=== PATIENT | female | born 1935 | race Caucasian/White ===

== ENCOUNTER → 2017-01-08 | Outpatient (CLI) | payer OTHER | LOC: FIMAGING 15:04 | PROVIDERS: ATTEND Family Medicine Geriatric Medicine | DX: Z12.31 Encounter for screening mammogram for malignant neoplasm of breast (principal); Z80.3 Family history of malignant neoplasm of breast | CPT/HCPCS: G0202 ==

== ENCOUNTER 2017-05-24 12:33 | Emergency (ER) | payer OTHER ==
[2017-05-24 12:47] VITALS: RESP 18
--- NOTE | 2017-05-24 12:52 | EDPHY ---
H & P Stated Complaint: mechanical fall with walker today Time Seen by Provider: 05/24/17 12:36 HPI/ROS: CHIEF COMPLAINT: Mechanical fall, head injury, left hand injury HISTORY OF PRESENT ILLNESS: 82-year-old female, history of CVA, Alzheimer's, on daily Eliquis, arrives via ambulance, not a trauma activation, after mechanical fall at the library impacting the left side of her head and left hand. Complaining of left hand pain. Denies headache, denies vomiting. REVIEW OF SYSTEMS: A ten point review of systems was performed and is negative with the exception of the items mentioned in the HPI] PAST MEDICAL/SURGICAL HISTORY: Daily Eliquis , CVA, Alzheimer's SOCIAL HISTORY: , no alcohol use PHYSICAL EXAM 1) GENERAL: Well-developed, well-nourished, alert and oriented. Appears to be in no acute distress. Answering questions appropriately. 2) HEAD: Normocephalic, left lateral eyebrow 1 cm well-demarcated superficial laceration. Positive hematoma 3) HEENT: Pupils equal, round, reactive to light bilaterally. Negative Horners. Nasopharynx, oropharynx, clear. No deformity or angulation of nose. No septal hematoma. No rhinorrhea. No oral trauma. Ears bilaterally with normal tympanic membranes. No hemotympanum. No fluid or blood in the external auditory canal. No raccoon eyes. No Padilla sign. 2 mm puncture wound left lip not through and through. Hemostatic. Teeth are normally aligned with no gross malocclusion, TMJ bilaterally nontender, facial bones nontender including the zygomatic arch, maxilla mandible. 4) NECK: No cervical collar is on. Posterior cervical spine is nontender, no stepoff, no effusion. Full range of motion which does not elicit any midline cervical spine pain, no posterior midline tenderness, no step-off. 5) LUNGS: Clear to auscultation bilaterally, no wheezes, no rhonchi, no retractions. No obvious signs of trauma. No chest wall pain. No flaring, no grunting. Moving symmetrically. No crepitus. 6) HEART: Regular rate and rhythm, 7) ABDOMEN: No guarding, no rebound, no focal tenderness, no peritoneal signs, no signs of trauma, no ecchymosis 8) MUSCULOSKELETAL: Left upper extremity: Tender to palpation left 5th metacarpal. No deformity no angulation no shortening normal cascading of digit. Intact skin no tenting. Otherwise he wrist forearm nontender. Otherwise, Moving all extremities, no focal areas of tenderness, no obvious trauma. Bilateral hips legs nontender 9) BACK: No midline vertebral tenderness, no fluctuance, no step-off, no obvious trauma, no visual or palpable abnormality. 10) SKIN: No abrasion DIFFERENTIAL DIAGNOSIS: Not necessarily in any particular order, my differential diagnosis includes, but is not limited to, concussion, skull fracture, intraparenchymal contusion, subarachnoid, subdural and epidural hematoma. The patient understands that this diagnosis is provisional and can never be 100% accurate. 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 - Social History Smoking Status: Never smoked Constitutional: Initial Vital Signs Temperature (C) 36.7 C 05/24/17 12:46 Heart Rate 86 05/24/17 12:46 Respiratory Rate 18 05/24/17 12:46 Blood Pressure 136/96 H 05/24/17 12:46 O2 Sat (%) 100 05/24/17 12:46 O2 Delivery Mode Room Air Allergies/Adverse Reactions: No Known Allergies Allergy (Unverified 01/28/16 12:01) Home Medications: Medication Instructions Recorded LORazepam [Ativan (*)] 0.5 mg PO DAILY PRN 02/05/16 Acetaminophen [Tylenol 325mg (*)] 325 mg PO Q6 PRN #20 tab 02/10/16 Calcium Carbonate [Tums 500MG (*)] 1,000 mg PO BID PRN #30 tab.chew 02/10/16 Cholecalciferol Vit D3 [Vitamin D3 2,000 units PO DAILY #30 cap 02/10/16 2000 units] Escitalopram Oxalate [Lexapro] 5 mg PO DAILY #30 tablet 06/17/16 Metoprolol Tartrate [Lopressor 25 25 mg PO BID #60 tab 02/10/16 mg (*)] traMADol [Ultram 50 mg (*)] 50 mg PO Q6 PRN #30 tab 02/10/16 Eliquis 05/24/17 Medical Decision Making - Diagnostics Imaging Results: Imaging Impressions Cervical Spine CT 05/24/17 12:47 Impression: 1. No definite fracture. 2. Multilevel moderate to severe degenerative disk disease, worse at C5-C6 and C6-C7 and variable bilateral facet arthropathy with degenerative anterolisthesis at C3-C4 and C7-T1 resulting in moderate to severe central canal stenosis at C5-C6 and C6-C7, worse at C6-C7, and variable bilateral neural foraminal stenosis, also worse at C5-C6 and C6-C7. 3.If there is persistent pain or neurological deficit, recommend MR cervical spine and consider flexion and extension views, if clinically indicated. Findings and recommendations discussed with Emergency Department physician, Nannette Wu at 13:55 hour, 05/24/2017. Final report concurs with initial preliminary interpretation. Hand X-Ray 05/24/17 12:47 Impression: 1. Displaced fracture distal shaft left fifth metacarpal with some overlapping of the edges. 2. Mild underlying osteoarthritis. Head CT 05/24/17 12:47 Impression: 1. Moderate atrophy. 2. Old left parietal infarct. No acute hemorrhage, hydrocephalus, or mass effect. 3. Cerebrovascular atherosclerosis. 4. No definite acute infarct. 5. Moderate microvascular ischemic gliosis. 6. No epidural or subdural hematoma. 7. Possible right middle ear otitis media with chronic right mastoiditis. Findings and recommendations discussed with Emergency Department physician, Nannette Wu at 13:55 hour, 05/24/2017. Final report concurs with initial preliminary interpretation. Images reviewed by myself Imaging: Discussed imaging studies w/ staff accountant Radiologist Procedures: Procedure: Splint an ulnar gutter Ortho Glass splint was applied by ER electronic service technician. After application of the splint I returned and re-examined the patient. The splint was adequately immobilizing the joint and distal to the splint the patient's circulation and sensation were intact. Patient shows no signs of compartment syndrome. Was given orthopedic precautions. Procedure: Laceration repair with tissue adhesive Verbal consent was obtained from the patient. The 1 cm laceration on the left lateral eyebrow. The wound was scrubbed and explored to its base with a gloved finger. No foreign body seen, no foreign bodies palpated. There were no deep structures involved. The wound was repaired with tissue adhesive. The procedure was performed by myself. Patient has been informed that scarring will occur, although every effort has been made to minimize this. ED Course/Re-evaluation: 12:50 p.m.: Head CT ordered in this patient for trauma for the following indication: greater than 65 years old, anticoagulated. 2:50 p.m.: Patient re-evaluated, laceration to the left eyebrow closed with tissue adhesive. Patient's answering questions appropriately, has care providers and at bedside . Patient would like to be discharged. The patient lives with family members. They feel comfortable being discharged. Usual customary head injury precautions including delayed intracranial hemorrhage discussed. Importance of close follow-up discussed. They feel comfortable being discharged. Given orthopedic precautions and instructions and follow-up information. Departure - Departure Disposition: Home, Routine, Self-Care Clinical Impression: Boxers fracture Qualifiers: Encounter type: initial encounter Fracture type: closed Qualified Code(s): S62.339A - Displaced fracture of neck of unspecified metacarpal bone, initial encounter for closed fracture Head injury Qualifiers: Encounter type: initial encounter Qualified Code(s): S09.90XA - Unspecified injury of head, initial encounter Laceration of forehead Qualifiers: Encounter type: initial encounter Qualified Code(s): S01.81XA - Laceration without foreign body of other part of head, initial encounter Condition: Good Instructions: Hand Fracture (ED), Boxer Fracture (ED), Head Injury (ED), Laceration (ED), Skin Adhesive Care (ED) Additional Instructions: ALTHOUGH THERE IS NO EVIDENCE OF SERIOUS HEAD INJURY AT THIS TIME, DELAYED SIGNS CAN APPEAR 24 TO 48 HOURS AFTER INJURY. WE RECOMMEND THAT YOU DESIGNATE A FRIEND OR FAMILY MEMBER TO OBSERVE YOU OVER THE NEXT FEW DAYS TO ENSURE THAT YOUR CONDITION IS PROGRESSING NORMALLY. PLEASE RETURN TO THE EMERGENCY DEPARTMENT (ED) IMMEDIATELY IF YOU HAVE INCREASED HEADACHE, PERSISTENT HEADACHE , VOMITING, WEAKNESS, CONFUSION OR VISUAL PROBLEMS. WE RECOMMEND THAT YOU DO NOT RESUME CONTACT SPORTS OR ACTIVITIES THAT TAKE COORDINATION OR BALANCE SUCH SKIING OR RIDING A BICYCLE UNTIL CLEARED TO DO SO BY YOUR DOCTOR OR BY A NEUROLOGIST. Return to the ER immediately if you experience discoloration, have worsening pain, numbness, tingling, or any other symptoms that concern you. If you received x-rays in the emergency department today, be advised, that ligamentous , tendon, muscular, and other non-bony injury cannot be fully ruled out. Try to keep your affected extremity elevated above the level of your chest, and keep cold packs on the affected area, for the next 48 hours. Referrals: Adin Vogt MD [Medical Doctor] - 2-3 days without fail (Dr. Adin Vogt is orthopedic surgeon)
[2017-05-24 13:44] VITALS: BP 122/87
[2017-05-24] MEDS ORDERED: HYDROGEN PEROXIDE 236 ML BOTTLE TP ONE (13:50)
[2017-05-24] MEDS ORDERED: SKIN ADHESIVE (DERMABOND) 1 EACH TP ONE (14:44)
[2017-05-24 15:05] VITALS: PULSE 86; TEMP 98.4; O2SAT 95
== END 2017-05-24 15:05 | disposition home or self-care (01) ==
LOC: EDUNIT#
PROC: 0HQ1XZZ Repair Face Skin, External Approach (ICD-10-PCS; principal; 2017-05-24)
DX: S01.112A Laceration without foreign body of left eyelid and periocular area, initial encounter (principal); S62.337A Displaced fracture of neck of fifth metacarpal bone, left hand, initial encounter for closed fracture; I50.9 Heart failure, unspecified; I11.0 Hypertensive heart disease with heart failure; Z86.73 Personal history of transient ischemic attack (TIA), and cerebral infarction without residual deficits; Z79.01 Long term (current) use of anticoagulants; W18.30XA Fall on same level, unspecified, initial encounter; Y92.241 Library as the place of occurrence of the external cause

== ENCOUNTER → 2018-02-03 | Outpatient (CLI) | payer OTHER | LOC: FIMAGING 09:21 | PROVIDERS: ATTEND Family Medicine Geriatric Medicine | DX: Z12.31 Encounter for screening mammogram for malignant neoplasm of breast (principal); Z80.3 Family history of malignant neoplasm of breast ==

== ENCOUNTER → 2018-02-19 | Outpatient (CLI) | payer OTHER | LOC: FIMAGING 09:10 | DX: R92.8 Other abnormal and inconclusive findings on diagnostic imaging of breast (principal) ==

== ENCOUNTER → 2018-05-06 | Outpatient (CLI) | payer OTHER | LOC: FIMAGING 10:03 | PROVIDERS: ATTEND Physician Assistant Surgical | DX: S22.000A Wedge compression fracture of unspecified thoracic vertebra, initial encounter for closed fracture (principal) ==

== ENCOUNTER 2018-06-03 09:31 | Inpatient (IN) | payer OTHER ==
--- NOTE | 2018-06-03 09:47 | EDPHY ---
H & P Time Seen by Provider: 06/03/18 09:41 HPI/ROS: CHIEF COMPLAINT: Worsening shortness of breath and fatigue HISTORY OF PRESENT ILLNESS: History from the patient's daughter as she has trouble with words after previous stroke. She has been sick for the last 2 weeks with some diarrhea better with Imodium. She had an episode of nausea and vomiting yesterday. Over the past 2 days increasing shortness of breath with wheezing starting last night. Worse today with severe lethargy and fatigue and low blood pressure of 96/70 last night with her metoprolol held. Today symptoms are moderate to severe, worse with exertion. Not associated with fevers or chills. Further history and review of systems is limited by the patient's difficulty with speech which is baseline for her. She intermittently will sit she has chest pain or urinary symptoms and then when questioned differently she will deny. PAST MEDICAL HISTORY: Includes atrial fibrillation on Eliquis, stroke with residual speech difficulty, pulmonary embolism call a Alzheimer's, hypertension Social history: Here with her daughter who is her primary caregiver General Appearance: Alert and pleasant and cooperative with the exam Eyes: No scleral icterus. Extraocular motion intact. ENT, Mouth: Dry mucous membranes. Respiratory: Normal respiratory effort, breath sounds equal, lungs are clear to auscultation. Cardiovascular: Irregular and tachycardic. Gastrointestinal: Abdomen is soft and non tender. Neurological: Alert, face symmetric, normal motor and sensory in extremities. Difficulty with speech but can answer questions. Skin: Warm and dry, no rashes. Musculoskeletal: No peripheral edema. Psychiatric: Not agitated. Emergency Department course/MDM: Plan chest x-ray, EKG and electrolytes, urinalysis. Pulmonary embolism would be unlikely as she is on Eliquis. 1140: Pyuria noted, IV fluids and ceftriaxone, 2nd lactate ordered. Admission to hospitalist. 2nd troponin decreased from the 1st 1, she did not have recurrent hypotension. Does not have evidence of septic shock. Treated for severe sepsis with antibiotics and 30 mL/kilos IV fluids. Smoking Status: Never smoked Constitutional: Initial Vital Signs Temperature (C) 37 C 06/03/18 09:44 Heart Rate 112 H 06/03/18 09:44 Respiratory Rate 20 06/03/18 09:44 Blood Pressure 96/59 L 06/03/18 09:44 O2 Sat (%) 97 06/03/18 09:44 O2 Delivery Mode Room Air Allergies/Adverse Reactions: No Known Allergies Allergy (Unverified 06/03/18 09:40) Home Medications: Medication Instructions Recorded Cholecalciferol Vit D3 [Vitamin D3 2,000 units PO DAILY #30 cap 02/10/16 2000 units] Apixaban [Eliquis] 2.5 mg PO BID 03/26/18 Escitalopram Oxalate [Lexapro] 20 mg PO HS 03/26/18 Loperamide HCl [Imodium 2 mg (*)] 2 mg PO HS 03/26/18 Metoprolol Tartrate [Lopressor 25 25 mg PO BID 03/26/18 mg (*)] Acetaminophen [Tylenol ES 500 mg 500 mg PO TID 06/03/18 (*)] Furosemide [Lasix 20 MG (*)] 20 mg PO DAILY 06/03/18 LORazepam [Ativan (*)] 0.5 mg PO DAILY PRN 06/03/18 Lisinopril [Zestril 5 mg (*)] 5 mg PO DAILY@12 06/03/18 Sertraline HCl [Zoloft 50mg (*)] 75 mg PO DAILY 06/03/18 Medical Decision Making - Diagnostics EKG Interpretation: 12-lead EKG interpreted by me; official reading is in computer system. My interpretation is AFib with PVC and nonspecific lateral repolarization abnormality. Imaging Results: Imaging Impressions Chest X-Ray 06/03/18 10:32 Impression: 1. No pneumonia or acute intrathoracic process in this patient with COPD/ emphysema. 2. Atherosclerotic disease. 3. Chronic hiatal hernia. Imaging: I viewed and interpreted images myself Differential Diagnosis: Differential diagnosis considered for shortness of breath including but not limited to pulmonary infectious process, COPD, asthma, pulmonary embolus and congestive heart failure. Consult/Admit Bed Type: [place] [id number] Critical Care Time: Critical care time spent by me, Dr. Gaffney, exclusively with the care of this patient was 30 minutes, exclusive of PA or MILITARY LOGISTICS SPECIALIST time and exclusive of separate procedures. The organ system at risk was infectious and Cardiovascular sepsis and initial hypotension and I ordered IV fluids, IV antibiotics, multiple diagnostics to stabilize the patient and prevent worsening of the patient's condition. - Data Points Laboratory Results: Laboratory Results 06/03/18 10:00 06/03/18 10:00 06/03/18 06/03/18 06/03/18 10:30 10:26 10:25 WBC RBC Hgb Hct MCV MCH MCHC RDW Plt Count MPV Neut % (Auto) Lymph % (Auto) Gilmer % (Auto) Eos % (Auto) Baso % (Auto) Nucleat RBC Rel Count Absolute Neuts (auto) Absolute Lymphs (auto) Absolute Monos (auto) Absolute Eos (auto) Absolute Basos (auto) Absolute Nucleated RBC Immature Gran % Immature Gran # PT INR APTT VBG Lactic Acid 2.3 mmol/L H mmol/L (0.7-2.1) Sodium Potassium Chloride Carbon Dioxide Anion Gap BUN Creatinine Estimated GFR Glucose Calcium Phosphorus Total Bilirubin POC Troponin I 0.06 ng/mL ng/mL (0.00-0.08) NT-Pro-B Natriuret Pep Urine Color YELLOW Urine Appearance CLEAR Urine pH 5.0 (5.0-7.5) Ur Specific Everly 1.016 (1.002-1.030) Urine Protein NEGATIVE (NEGATIVE) Urine Ketones NEGATIVE (NEGATIVE) Urine Blood NEGATIVE (NEGATIVE) Urine Nitrate POSITIVE H (NEGATIVE) Urine Bilirubin NEGATIVE (NEGATIVE) Urine Urobilinogen NEGATIVE EU EU (0.2-1.0) Ur Leukocyte Esterase TRACE H (NEGATIVE) Urine RBC 1-3 /hpf /hpf (0-3) Urine WBC 10-15 /hpf H /hpf (0-3) Ur Epithelial Cells NONE SEEN /lpf /lpf (NONE-1+) Urine Bacteria 1+ /hpf H /hpf (NONE SEEN) Urine Glucose NEGATIVE (NEGATIVE) 06/03/18 06/03/18 06/03/18 10:00 10:00 10:00 WBC 9.49 10^3/uL 10^3/uL (3.80-9.50) RBC 3.92 10^6/uL L 10^6/uL (4.18-5.33) Hgb 12.6 g/dL g/dL (12.6-16.3) Hct 38.7 % % (38.0-47.0) MCV 98.7 fL fL (81.5-99.8) MCH 32.1 pg pg (27.9-34.1) MCHC 32.6 g/dL g/dL (32.4-36.7) RDW 13.3 % % (11.5-15.2) Plt Count 164 10^3/uL 10^3/uL (150-400) MPV 12.0 fL H fL (8.7-11.7) Neut % (Auto) 71.7 % % (39.3-74.2) Lymph % (Auto) 14.6 % L % (15.0-45.0) Gilmer % (Auto) 11.5 % % (4.5-13.0) Eos % (Auto) 1.2 % % (0.6-7.6) Baso % (Auto) 0.4 % % (0.3-1.7) Nucleat RBC Rel Count 0.0 % % (0.0-0.2) Absolute Neuts (auto) 6.80 10^3/uL H 10^3/uL (1.70-6.50) Absolute Lymphs (auto) 1.39 10^3/uL 10^3/uL (1.00-3.00) Absolute Monos (auto) 1.09 10^3/uL H 10^3/uL (0.30-0.80) Absolute Eos (auto) 0.11 10^3/uL 10^3/uL (0.03-0.40) Absolute Basos (auto) 0.04 10^3/uL 10^3/uL (0.02-0.10) Absolute Nucleated RBC 0.00 10^3/uL 10^3/uL (0-0.01) Immature Gran % 0.6 % % (0.0-1.1) Immature Gran # 0.06 10^3/uL 10^3/uL (0.00-0.10) PT 18.6 SEC H SEC (12.0-15.0) INR 1.54 H (0.83-1.16) APTT 34.3 SEC SEC (23.0-38.0) VBG Lactic Acid Sodium 141 mEq/L mEq/L (135-145) Potassium 3.6 mEq/L mEq/L (3.3-5.0) Chloride 110 mEq/L mEq/L (97-110) Carbon Dioxide 17 mEq/l L mEq/l (22-31) Anion Gap 14 mEq/L mEq/L (8-16) BUN 26 mg/dL H mg/dL (7-23) Creatinine 1.1 mg/dL H mg/dL (0.6-1.0) Estimated GFR 48 Glucose 103 mg/dL H mg/dL (70-100) Calcium 11.2 mg/dL H mg/dL (8.5-10.4) Phosphorus 2.9 mg/dL mg/dL (2.5-4.5) Total Bilirubin 0.6 mg/dL mg/dL (0.1-1.4) POC Troponin I NT-Pro-B Natriuret Pep 2010 pg/mL H pg/mL (0-450) Urine Color Urine Appearance Urine pH Ur Specific Everly Urine Protein Urine Ketones Urine Blood Urine Nitrate Urine Bilirubin Urine Urobilinogen Ur Leukocyte Esterase Urine RBC Urine WBC Ur Epithelial Cells Urine Bacteria Urine Glucose Microbiology Results: MICROBIOLOGY 06/03/18 11:15 Nasal, Sinus - Swab Respiratory Panel (PCR) - Final No Organism Detected Medications Given: Sodium Chloride (Ns) 1,000 mls @ 100 mls/hr IV CONT NICOLETTE Stop: 11/30/18 13:44 Last Admin: 06/03/18 14:19 Dose: 1,000 mls Discontinued Medications Ceftriaxone Sodium/Dextrose (Rocephin 1 Gm (Premix)) 50 mls @ 100 mls/hr IV EDNOW ONE PRN Reason: Protocol Stop: 06/03/18 11:57 Last Admin: 06/03/18 11:41 Dose: 50 mls Sodium Chloride (Ns) 2,100 mls @ 4,200 mls/hr 30 ml/kg infuse over 30 min ( 2100 ml) IV EDNOW ONE PRN Reason: Protocol Stop: 06/03/18 11:57 Last Admin: 06/03/18 11:40 Dose: 2,100 mls Point of Care Test Results: Chemistry 06/03/18 10:26 POC Troponin I 0.06 ng/mL ng/mL (0.00-0.08) Departure - Departure Disposition: [facility] Inpatient Acute Clinical Impression: UTI (urinary tract infection) Qualifiers: Urinary tract infection type: acute pyelonephritis Qualified Code(s): N10 - Acute pyelonephritis Sepsis Qualifiers: Sepsis type: sepsis due to unspecified organism Qualified Code(s): A41.9 - Sepsis, unspecified organism Condition: Fair
[2018-06-03 10:35] LABS: PLATELET COUNT 164 10^3/uL (150-400)
--- NOTE | 2018-06-03 10:38 | CPEKG ---
Test Reason : OPEN Blood Pressure : / mmHG Vent. Rate : 110 BPM Atrial Rate : 111 BPM P-R Int : 000 ms QRS Dur : 095 ms QT Int : 327 ms P-R-T Axes : 134 -26 182 degrees QTc Int : 443 ms atrial fibrillation Ventricular premature complex Borderline left axis deviation Repol abnrm suggests ischemia, anterolateral Confirmed by Lino Gaffney ([id number]) on 06/03/2018 10:38:00 AM Referred By: Confirmed By:Lino Gaffney
[2018-06-03 10:46] LABS: INR 1.54 (0.83-1.16); PROTIME(PATIENT) 18.6 SEC (12.0-15.0)
[2018-06-03] MEDS ORDERED: NS 2,100 ML IV ONE (11:28)
[2018-06-03] MEDS ORDERED: ACETAMINOPHEN 325 MG TAB PO PRN (12:17)
[2018-06-03] MEDS ORDERED: METOCLOPRAMIDE 10 MG TAB PO PRN (13:34)
[2018-06-03] MEDS ORDERED: oxyCODONE IR 5 MG TAB PO PRN (13:34)
[2018-06-03] MEDS ORDERED: HYDROmorphONE/DILAUDID 1 MG/ML INJ IVP PRN (13:34)
[2018-06-03] MEDS ORDERED: NS 1,000 ML IV SCH (13:45)
--- NOTE | 2018-06-03 14:03 | PDGENHP ---
History and Physical - Chief Complaint Shortness of breath and fatigue - History of Present Illness 83 y/o female with a history of atrial fibrillation, stroke with residual asphasia, PE, HTN, CHF, and depression presents to the ED with her daughter because of shortness of breath, wheezing, and activity intolerance. Pt appears to be in no distress, is calm and cooperative. Her daughter is the primary caregiver and answers majority of the questions as the pt has asphasia from her stroke that was in 2016. Pt's acute condition started 2-3 days ago but the onset of wheezing is new and that is what brought the pt in today. Daughter reports checking the pt's blood pressure, HR and oxygen and was worried because her "blood pressure was low, her heart rate was high plus she was wheezing just trying to move from room to room." Oxygen levels never dropped below 92%. Denies dizziness, lightheadedness, chest pains, fevers, chills. +emesis x 1 episode yesterday. She started Sertraline 5 weeks ago, began to have diarrhea 3 weeks ago and has been taking Imodium. Today was the first day the pt had a small, formed bowel movement. She has not had an appetite for the last 3 weeks. She drinks water and tea. She reports one episode of a burning sensation urinating within the last couple of days. Denies blood in stool or urine. She is being admitted for antibiotics, hydration, and further diagnostic work- up. History Information - Allergies/Home Medication List Allergies/Adverse Reactions: No Known Allergies Allergy (Unverified 06/03/18 09:40) Home Medications: Apixaban [Eliquis] 2.5 mg PO BID 03/26/18 [Last Taken 06/02/18 21:00] Escitalopram Oxalate [Lexapro] 20 mg PO HS 03/26/18 [Last Taken 06/02/18] Loperamide HCl [Imodium 2 mg (*)] 2 mg PO HS 03/26/18 [Last Taken 03/25/18] Metoprolol Tartrate [Lopressor 25 mg (*)] 25 mg PO BID 03/26/18 [Last Taken 04/12 09:00] Acetaminophen [Tylenol ES 500 mg (*)] 500 mg PO TID 06/03/18 [Last Taken ] Furosemide [Lasix 20 MG (*)] 20 mg PO DAILY 06/03/18 [Last Taken 06/02/18] LORazepam [Ativan (*)] 0.5 mg PO DAILY PRN 06/03/18 [Last Taken 06/01/18] Lisinopril [Zestril 5 mg (*)] 5 mg PO DAILY@12 06/03/18 [Last Taken 06/02/18] Sertraline HCl [Zoloft 50mg (*)] 75 mg PO DAILY 06/03/18 [Last Taken 06/02/18] I have personally reviewed and updated: family history, medical history, social history, surgical history - Past Medical History atrial fibrillation, arthritis, cancer, CHF, CVA, dementia (Per daughter, not diagnosed but thinks she has vascular dementia), hearing deficit, hypertension, pulmonary embolism, recent fracture Additional medical history: Right breast cancer - Surgical History Reports: cancer surgery Additional surgical history: Right breast lumpectomy April 2018 - Family History Positive for: cancer (Breast cancer) - Social History Smoking Status: Never smoked Alcohol Use: Occasionally (One kristal every ) Drug Use: None Review of Systems Review of Systems: Lab Data and Imaging reviewed. ROS: 10pt was reviewed & negative except for what was stated in HPI & below Constitutional: Reports: recent illness, weakness EENMT: Reports: other (Black teeth) Cardiac: Reports: irregular heart rate Respiratory: Reports: shortness of breath, wheezing (With exertion) Gastrointestinal: Reports: diarrhea, nausea Genitourinary: Reports: burning, incontinence Muscolosketal: Reports: no symptoms Skin: Reports: no symptoms Neurological: Reports: depressed, pre-existing deficit (Stroke), weakness Hematologic/Lymphatic: Reports: no symptoms Immunologic/Allergy: Reports: no symptoms Physical Exam Physical Exam: Temp Pulse Resp BP Pulse Ox 36 C 100 16 100/66 99 06/03/18 13:46 06/03/18 13:46 06/03/18 13:46 06/03/18 13:46 06/03/18 13:46 Constitutional: no apparent distress Eyes: PERRL, anicteric sclera, EOMI Ears, Nose, Mouth, Throat: poor dentition, hard of hearing Cardiovascular: irregularly irregular, tachycardia Peripheral Pulses: 1+: dorsalis-pedis (R), dorsalis-pedis (L) Respiratory: reduced air movement Gastrointestinal: normoactive bowel sounds, tenderness (LUQ, LLQ) Genitourinary: no bladder fullness, no bladder tenderness Skin: warm, normal color, no rashes or abrasions, no fluctuance, no induration, No mottled Musculoskeletal: full muscle strength, no muscle tenderness, normal joint ROM, no joint effusions Neurologic: weakness, numbness, CN II-XII Intact Psychiatric: interacting appropriately, not anxious, not encephalopathic, thought process linear Lymph, Heme, Immunologic: no cervical LAD, no supraclavicular LAD Lab Data & Imaging Review 06/03/18 10:00 06/03/18 10:00 WBC 9.49 10^3/uL (3.80-9.50) 06/03/18 10:00 RBC 3.92 10^6/uL (4.18-5.33) L 06/03/18 10:00 Hgb 12.6 g/dL (12.6-16.3) 06/03/18 10:00 Hct 38.7 % (38.0-47.0) 06/03/18 10:00 MCV 98.7 fL (81.5-99.8) 06/03/18 10:00 MCH 32.1 pg (27.9-34.1) 06/03/18 10:00 MCHC 32.6 g/dL (32.4-36.7) 06/03/18 10:00 RDW 13.3 % (11.5-15.2) 06/03/18 10:00 Plt Count 164 10^3/uL (150-400) 06/03/18 10:00 MPV 12.0 fL (8.7-11.7) H 06/03/18 10:00 Neut % (Auto) 71.7 % (39.3-74.2) 06/03/18 10:00 Lymph % (Auto) 14.6 % (15.0-45.0) L 06/03/18 10:00 [place] % (Auto) 11.5 % (4.5-13.0) 06/03/18 10:00 Eos % (Auto) 1.2 % (0.6-7.6) 06/03/18 10:00 Baso % (Auto) 0.4 % (0.3-1.7) 06/03/18 10:00 Nucleat RBC Rel Count 0.0 % (0.0-0.2) 06/03/18 10:00 Absolute Neuts (auto) 6.80 10^3/uL (1.70-6.50) H 06/03/18 10:00 Absolute Lymphs (auto) 1.39 10^3/uL (1.00-3.00) 06/03/18 10:00 Absolute Monos (auto) 1.09 10^3/uL (0.30-0.80) H 06/03/18 10:00 Absolute Eos (auto) 0.11 10^3/uL (0.03-0.40) 06/03/18 10:00 Absolute Basos (auto) 0.04 10^3/uL (0.02-0.10) 06/03/18 10:00 Absolute Nucleated RBC 0.00 10^3/uL (0-0.01) 06/03/18 10:00 Immature Gran % 0.6 % (0.0-1.1) 06/03/18 10:00 Immature Gran # 0.06 10^3/uL (0.00-0.10) 06/03/18 10:00 PT 18.6 SEC (12.0-15.0) H 06/03/18 10:00 INR 1.54 (0.83-1.16) H 06/03/18 10:00 APTT 34.3 SEC (23.0-38.0) 06/03/18 10:00 VBG Lactic Acid 1.4 mmol/L (0.7-2.1) 06/03/18 13:15 Sodium 141 mEq/L (135-145) 06/03/18 10:00 Potassium 3.6 mEq/L (3.3-5.0) 06/03/18 10:00 Chloride 110 mEq/L (97-110) 06/03/18 10:00 Carbon Dioxide 17 mEq/l (22-31) L 06/03/18 10:00 Anion Gap 14 mEq/L (8-16) 06/03/18 10:00 BUN 26 mg/dL (7-23) H 06/03/18 10:00 Creatinine 1.1 mg/dL (0.6-1.0) H 06/03/18 10:00 Estimated GFR 48 06/03/18 10:00 Glucose 103 mg/dL (70-100) H 06/03/18 10:00 Calcium 11.2 mg/dL (8.5-10.4) H 06/03/18 10:00 Phosphorus 2.9 mg/dL (2.5-4.5) 06/03/18 10:00 Total Bilirubin 0.6 mg/dL (0.1-1.4) 06/03/18 10:00 POC Troponin I 0.06 ng/mL (0.00-0.08) 06/03/18 10:26 NT-Pro-B Natriuret Pep 2010 pg/mL (0-450) H 06/03/18 10:00 Urine Color YELLOW 06/03/18 10:30 Urine Appearance CLEAR 06/03/18 10:30 Urine pH 5.0 (5.0-7.5) 06/03/18 10:30 Ur Specific [place]t 1.016 (1.002-1.030) 06/03/18 10:30 Urine Protein NEGATIVE (NEGATIVE) 06/03/18 10:30 Urine Ketones NEGATIVE (NEGATIVE) 06/03/18 10:30 Urine Blood NEGATIVE (NEGATIVE) 06/03/18 10:30 Urine Nitrate POSITIVE (NEGATIVE) H 06/03/18 10:30 Urine Bilirubin NEGATIVE (NEGATIVE) 06/03/18 10:30 Urine Urobilinogen NEGATIVE EU (0.2-1.0) 06/03/18 10:30 Ur Leukocyte Esterase TRACE (NEGATIVE) H 06/03/18 10:30 Urine RBC 1-3 /hpf (0-3) 06/03/18 10:30 Urine WBC 10-15 /hpf (0-3) H 06/03/18 10:30 Ur Epithelial Cells NONE SEEN /lpf (NONE-1+) 06/03/18 10:30 Urine Bacteria 1+ /hpf (NONE SEEN) H 06/03/18 10:30 Urine Glucose NEGATIVE (NEGATIVE) 06/03/18 10:30 Assessment & Plan Assessment: 83 y/o female presenting with acute SOB with wheezing upon exertion, loss of appetite, and fatigue. Plan: #Dyspnea -Echo ordered -Respiratory panel negative -Continue monitoring oxygen sats #CHF -Echo ordered -Cycle trops -Continue Metoprolol and Furosemide #A-Fib -Continue Eliquis #PE -Continue Eliquis -While in bed or chair, SCDs #UTI -Ceftriaxone 1gm Q24 -Lactate levels improving -Urine cultures pending #Hypovolemia -CBC and BMP lab draws for tomorrow -Blood cultures pending -IVF #Diarrhea -GI pathogen pending -IVF #HTN -Continue Lisinopril and Metoprolol #Depression -Continue Sertraline and Ativan Code: Full VTE ppx: Олег Iqbal Dispo: Admit to inpatient
[2018-06-03] MEDS ORDERED: LORazepam 0.5 MG TAB PO PRN (15:55)
--- NOTE | 2018-06-03 16:03 | PDMN ---
Medical Necessity Medical necessity: Pt meets inpt criteria per MD order and MCG M-190, Heart Failure, A-2 days. 83 y/o presenting w/acute SOB w/wheezing, loss of appetite, fatigue, and hypotension admitted w/CHF, UTI, hypovolemia, and diarrhea. BNP 2010, BUN 26, creat 1.1, VBG lactic acid 2.3, blood and urine cultures pending. IV ABX's, IVF, ECHO pending, Comorbidities include hx afib, stroke w/residual aphasia, PE, HTN, CHF, adv age. Anticipate>2MN for ongoing med nec eval/ treatment.
--- NOTE | 2018-06-03 17:44 | HOSPPROG ---
Hospitalist Progress Note Assessment/Plan: Patient seen and examined, as well as discussed with Susan Conway NP. I have reviewed her note and concur with her findings. When I see her, she is much improved and interacting appropriately with a much improved BP. Her underlying presentation is most consistent with hypovolemia from diarrhea, as well as poor PO intake from UTI. She has markedly improved with IVF. We will complete a cardiac workup including echo and troponins given her significant CHF. We will assure she does not have an infective cause. We will continue her chronic treatment for a-fib, her CVA and her PE. If she continues to improve she may be discharged tomorrow. Objective: Vital Signs Temp Pulse Resp BP Pulse Ox 36.5 C 92 20 101/68 97 06/03/18 16:00 06/03/18 16:00 06/03/18 16:00 06/03/18 16:00 06/03/18 16:00 06/02/18 06/03/18 06/04/18 05:59 05:59 05:59 Intake Total 2660 Balance 2660 PT 18.6 SEC (12.0-15.0) H 06/03/18 10:00 INR 1.54 (0.83-1.16) H 06/03/18 10:00 ICD10 Worksheet Patient Problems: Problems Problem Status Onset Atrial fibrillation Acute Pancreatitis Acute Elevated troponin Acute New onset atrial fibrillation Acute CVA (cerebral vascular accident) Acute Back pain Acute UTI (urinary tract infection) Acute Sepsis Acute
--- NOTE | 2018-06-03 18:26 | ECHO ---
[email or web address] [address] Main: [phone] Fax: [email or web address] Echocardiogram Name: NICHOLE MYERS MR#: [id number] Study Date: 06/03/2018 Study Time: 03:22 PM Date of : 1935 Age: 83 year(s) Height: 157.5 cm (62 in.) Weight: 70.76 kg (156 lb.) BSA: 1.72 m2 Gender: Female Examination: Indication: Sepsis, Shortness of breath, Fatique, UTI Image Quality: Contrast: Requested by: Elda Conway BP: 128 mmHg/113 mmHg Heart Rate: Rhythm: Indication: Sepsis, Shortness of breath, Fatique, UTI Procedure Staff Frame Changer: Dwain Wiley RDCS Reading Physician: Cody Shore MD Requesting Provider: Conclusions: Normal size left ventricle. Low normal left ventricular systolic function. Normal RV function. The left atrium is severely dilated. The right atrium is severely dilated. Severe tricuspid regurgitation is present. Right ventricular systolic pressure measures 57mmHg. There is a pulmonary valve vegetation. There is mobile echodensity on the pulmonic valve consistent with a vegetation and endocarditis. Measurements: Chambers Valvular Assessment AV/MV Valvular Assessment TV/PV Normal Normal Normal Name Value Range Name Value Range Name Value Range Ao Ruth (MM): 3.4 cm (2.2 cm-3.7 AV Vmax: 1.26 m/s (1 m/s-1.7 TR Vmax: 3.60 mm/s ( - ) cm) m/s) TR PGmax: 52 mmHg ( - ) IVSd (2D): 0.9 cm (0.6 cm-1.1 AV maxP mmHg ( - ) syst. PAP: 57 mmHg ( - ) cm) LVOT Vmax: 0.70 m/s (0.7 m/s-1.1 LVDd (2D): 3.7 cm (3.9 cm-5.3 m/s) cm) MV E Vmax: 0.91 m/s ( - ) LVDs (2D): 2.7 cm (2.1 cm-4 cm) LVPWd (2D): 0.9 cm ( - ) LVEF (2D): 55 (>=54 %) Continued Measurements: Chambers Valvular Assessment AV/MV Valvular Assessment TV/PV Name Value Name Value Name Value Patient: NICHOLE MYERS Study Date: 06/03/2018 Page 1 of 2 03:22 PM LADs Lon.9 cm MV E' Septal: 0.07 m/s CVP (est.): 5 mmHg LA Area: 34.3 cm2 MV E/E' Septal: 13.50 LA Volume: 120 ml MV E/E' Lateral: 5.50 LA Volume Index: 69.8 ml/m2 Findings: Left Ventricle: Normal size left ventricle. No LV hypertrophy. Low normal left ventricular systolic function. EF is 55 %. Diastolic dysfunction is present. . Right Ventricle: Normal size right ventricle. Normal RV function. Left Atrium: The left atrium is severely dilated. Right Atrium: The right atrium is severely dilated. Mitral Valve: The mitral valve is normal in appearance. Trivial to mild mitral regurgitation. There is no mitral valve vegetation. Aortic Valve: The aortic valve is tri-leaflet. There is no significant aortic valve regurgitation. There is no aortic valve vegetation. Tricuspid Valve: The tricuspid valve appears normal. Severe tricuspid regurgitation is present. The pulmonary artery pressure is moderately increased. Right ventricular systolic pressure measures 57mmHg. No tricuspid valve vegetation. Pulmonic Valve: Trivial pulmonic valve regurgitation. There is a pulmonary valve vegetation. Aorta: The aorta is normal. Pericardium: No pericardial effusion. Exam Comments: (No Signature Object) Patient: NICHOLE MYERS Study Date: 06/03/2018 Page 2 of 2 03:22 PM [id number]
[2018-06-03] MEDS ORDERED: VANCOMYCIN HCL/NORMAL SALINE 250 ML IV ONE (19:24)
--- NOTE | 2018-06-03 20:01 | HOSPPROG ---
Hospitalist Progress Note Assessment/Plan: Called bedside by patient's daughter for further explanation of endocarditis. 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 No e/o abscess on exam -IV Vanc, ID consulted. Hemodynamically stable Daughter at bedside, all Objective: Vital Signs Temp Pulse Resp BP Pulse Ox 36.5 C 92 20 101/68 97 06/03/18 16:00 06/03/18 16:00 06/03/18 16:00 06/03/18 16:00 06/03/18 16:00 06/02/18 06/03/18 06/04/18 05:59 05:59 05:59 Intake Total 2660 Balance 2660 PT 18.6 SEC (12.0-15.0) H 06/03/18 10:00 INR 1.54 (0.83-1.16) H 06/03/18 10:00 ICD10 Worksheet Patient Problems: Problems Problem Status Onset Sepsis Acute UTI (urinary tract infection) Acute Atrial fibrillation Acute Back pain Acute CVA (cerebral vascular accident) Acute Elevated troponin Acute New onset atrial fibrillation Acute Pancreatitis Acute
[2018-06-03] MEDS: APIXABAN 2.5 MG TAB PO SCH (20:37)
[2018-06-03] MEDS: METOPROLOL TARTRATE 25 MG TAB PO SCH (20:51)
[2018-06-03] MEDS: ESCITALOPRAM OXALATE 10 MG TAB PO SCH (21:23)
[2018-06-03] MEDS ORDERED: LOPERAMIDE HCL 2 MG CAP PO PRN (22:04)
[2018-06-04 04:51] LABS: PLATELET COUNT 121 10^3/uL (150-400)
[2018-06-04 05:05] LABS: INR 1.31 (0.83-1.16); PROTIME(PATIENT) 16.5 SEC (12.0-15.0)
[2018-06-04] MEDS ORDERED: POTASSIUM CL 20 MEQ TAB PO ONE (05:23)
[2018-06-04] MEDS: VANCOMYCIN HCL/NORMAL SALINE 250 ML IV ONE ×2 (07:26→07:48)
[2018-06-04] MEDS ORDERED: FUROSEMIDE 20 MG TAB PO SCH (09:00)
[2018-06-04] MEDS ORDERED: SERTRALINE HCL 50 MG TAB PO SCH ×2 (09:00)
[2018-06-04] MEDS: METOPROLOL TARTRATE 25 MG TAB PO SCH ×2 (09:14→21:09)
[2018-06-04] MEDS: APIXABAN 2.5 MG TAB PO SCH ×2 (09:14→21:16)
--- NOTE | 2018-06-04 09:26 | ASMTCMCOM ---
CM Note CM Note Notes: 83yr old female admitted for SOB, Fatigue, UTI. She has a Hx of Afib, CVA-Aphasia, PE, HTN, CHF, [place], R breast CA, Depression, Dementia. Patient being tx with ABX. Patient lives with her daughter Park. Therapies to eval? CM to follow for possible discharge needs. Date Signed: 06/04/2018 09:25 AM Electronically Signed By:Jammie Wright LCSW
--- NOTE | 2018-06-04 11:38 | GCON ---
INFECTIOUS DISEASE CONSULTATION DATE OF CONSULTATION: 06/04/2018 REFERRING PHYSICIAN: Nick Roldan MD REASON FOR CONSULTATION: Pulmonic valve vegetation with question of endocarditis. HISTORY OF PRESENT ILLNESS: Patient is an 83-year-old female with a past medical history of atrial f ibrillation, stroke with residual aphasic, pulmonary embolism, and recent diagnosis of breast cancer who I am asked to see in consultation for consideration of endocarditis based on echocardiogram showi ng evidence of pulmonic valve vegetation. The patient was brought into the hospital because she had developed increasing shortness of breath and wheezing with associated hypotension. She also had an e levated heart rate. These symptoms were present for approximately 2-3 days. She also had started se rtraline several weeks ago and after starting had developed regular episodes of diarrhea and poor brian etite. Diarrhea was relieved with Imodium. The patient had been hospitalized at the time of her cassy ast surgery in March and was noted to have an E coli in her urine, which was felt to represent asymp tomatic bacteriuria and was not treated with antibiotic therapy. The patient subsequently was at [facility] rehab and did undergo treatment for urinary tract infection while there. Her daughter does n ot note any urinary complaints, such as dysuria, urgency, or frequency. She typically is incontinent of urine. She has not noted any fevers or night sweats, but did note 1 episode of chills. The maya ent's white blood cell count at time of presentation was 9.5 with 72% neutrophils. Initial lactic ac id was elevated at 2.3 and rapidly corrected to 1.4 with IV hydration. Patient underwent echocardiogram with findings showing a mobile echodensity on the pulmonic valve con sistent with vegetation; there was trivial pulmonary valve regurgitation; the patient also had severe dilatation of the left and right atrium with severe tricuspid regurgitation and elevated right ventr icular systolic pressures. Patient's daughter relates that she believes this may have been seen on [facility] echocardiogram when she was evaluated for stroke. Review of echocardiogram from 2015, reveals t hat a pulmonic valve vegetation or echodensity was present at that point in time. She was seen by Dr Jagdish Haro and did not have other findings to suggest endocarditis and therefore was monitored without antibiotic therapy. Patient was given a single dose of vancomycin empirically yesterday and started on ceftriaxone with concern for possible urinary tract infection as well. Given the above findings, I am now asked to assist in her ongoing management. PAST MEDICAL HISTORY: Breast cancer, atrial fibrillation, stroke, pulmonary embolism, congestive hea rt failure, vascular dementia, hypertension. PAST SURGICAL HISTORY: Recent surgery for right breast cancer with daughter noting margins were not clean, but no plans for additional surgery. The patient has had a hip replaced, although daughter ca nnot recall which side. CURRENT MEDICATIONS: Vancomycin 1 g IV x1, ceftriaxone 1 g IV daily, Eliquis 2.5 mg p.o. b.i.d., Yuan apro 20 mg p.o. q.h.s., lisinopril 5 mg p.o. daily, Lopressor 25 mg p.o. b.i.d., Zoloft 75 mg p.o. da shabnam. ALLERGIES: No known drug allergies. SOCIAL HISTORY: Patient does not smoke and drinks 1 alcoholic beverage weekly. She lives with her estella tilley. There is a pet cat with no bites or scratches. No recent travel. FAMILY HISTORY: Breast cancer. REVIEW OF SYSTEMS: Outside that noted in the HPI, the remainder of a 10-system review was unremarkab le. Patient has not had any recent skin infections or injuries. Black discoloration of tongue and te eth daily. PHYSICAL EXAMINATION: VITAL SIGNS: Temperature 36.5, heart rate 88, respiratory rate 17, blood pres sure 127/73, oxygen saturation 94% on room air. GENERAL: Patient is well nourished, well developed in no acute distress. She appears nontoxic. HEENT: There is no scleral icterus, conjunctival injec tion, or conjunctival petechiae. Oropharynx shows some gingival recession and dental caries in the l eft posterior molars. There is no black discoloration present. There is no thrush present. Mucous membranes are mildly dry. There is no sinus tenderness or nasal discharge. NECK: Supple without pa lpable lymphadenopathy or thyromegaly. CHEST: Clear to auscultation bilaterally without adventitiou s sounds. Respiratory effort is normal. CARDIOVASCULAR: Irregularly irregular, without murmurs or rubs. ABDOMEN: Soft, nontender, nondistended. There is no palpable organomegaly. Bowel sounds are present. There is no palpable organomegaly. MUSCULOSKELETAL: There is no cyanosis, clubbing, or e thiago. SKIN: There are no stigmata of endocarditis. There are no rashes present. BREASTS: Right b reast shows well-healed surgical incision with no erythema, drainage or tenderness. NEUROLOGIC: Pat ient is alert and follows commands. Muscle tone and bulk are normal. Sensation appears intact. LYM PHATICS: No cervical or supraclavicular nodes palpable. LABORATORY/IMAGING: White blood cell count 6.8, hematocrit 30.9, platelets 121, neutrophils 62%, lym phocytes 20%. Creatinine 0.7, bicarb 18. INR 1.3. Venous lactate 1.4. Urinalysis shows 1-3 red bl ood cells and 10-15 white blood cells with 1+ bacteria. Blood cultures x2 sets are pending. Urine c ulture from 03/29/2018, showed greater than 100,000 E coli. GI pathogen panel by PCR testing shows n o organisms. Urine culture is showing greater than 100,000 lactose fermenting gram-negative rods. Echocardiogram as outlined above. IMPRESSION: 1. Pulmonary valve vegetation: Further review shows that patient had evidence of pulmonic valve veg etation in 2016. Blood cultures remain negative to date without specific symptoms of preceding infec tion or constitutional symptoms associated with subacute bacterial endocarditis. These can, however, be less typical in elderly patients. Given the prior echocardiographic findings, suspect endocardit is will be unlikely. Will require comparison from the echocardiogram in 2016, to current echocardiog marley to see if any interval change present. Patient does have some poor dentition, which would pose a risk of oropharyngeal bacteremia. 2. Asymptomatic bacteriuria: Patient does not have symptoms of urinary tract infection. She has flowers d Escherichia coli in her urine previously and current culture likely will be manufacturer's representative of Esche richia coli as well. Given the absence of symptoms, would not recommend antibiotic therapy for this entity. 3. Thrombocytopenia: This has been present previously. RECOMMENDATIONS: 1. We will have Cardiology compare echocardiogram from 2016, to current echocardiogram to see if any interval change in pulmonary vegetation. 2. Discontinue ceftriaxone and observe off antibiotics. 3. Follow up blood cultures as available. Clinical findings and plan were discussed with the patient, daughter, and ICU team. Thank you for this consultation. We will continue to follow the patient with you. /[id number]/[id number]
[2018-06-04] MEDS: LOPERAMIDE HCL 2 MG CAP PO PRN (12:00)
[2018-06-04] MEDS: LISINOPRIL 5 MG TAB PO SCH (12:00)
--- NOTE | 2018-06-04 13:34 | HOSPPROG ---
Hospitalist Progress Note Assessment/Plan: The pt's condition has improved since last night. VSS and most recent vitals: BP 120/68, HR 72, Resp 14, O2 95%, 35.8C. Denies SOB, chest pains, dizziness, N/V. Continues to have diarrhea - since her GI panel was negative, she resumed Imodium. Continues to feel fatigue sitting in her chair as well as ambulating to and from the bathroom. Denies blood in urine or stool. Denies dysuria. On exam, she is alert and cooperative. Lung sounds clear to auscultate, diminished at bases. S1, S2 regular. Active BS, no abdominal tenderness. Dr. Shore was notified to compare ECHO images for significant changes. Problems #Hypokalemia: I suspect this is caused from her chronic diarrhea. -Initiated 40mEq IV replacement of KCl to be given now -Repeat BMP -GI panel negative -Sertraline potentially causing diarrhea - consider stopping Sertraline at this time. 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 -Appreciate Dr. Shore review of images #Asymptomatic bacteriuria -Appreciate Dr. 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 Previous cultures with E-Coli. -Lactate levels improved (2.3 to 1.4) -Will stop antibiotic use #Hypovolemia hypotension: suspected dehydration and lack of appetite and chronic diarrhea -IVF given last night -Continue to monitor Subjective: Fatigue Objective: Vital Signs Temp Pulse Resp BP Pulse Ox 35.8 C L 72 14 120/68 95 06/04/18 11:48 06/04/18 11:48 06/04/18 11:48 06/04/18 11:48 06/04/18 11:48 Microbiology 06/03/18 21:24 Gastrointestinal Tract Panel (PCR) - Final Stool No Organism Detected Laboratory Results 06/04/18 04:35 06/03/18 06/04/18 06/05/18 05:59 05:59 05:59 Intake Total 3360 Balance 3360 PT 16.5 SEC (12.0-15.0) H 06/04/18 04:35 INR 1.31 (0.83-1.16) H 06/04/18 04:35 - Time Spent With Patient Time Spent with Patient: greater than 25 minutes Time Spent with Patient: Greater than 25 minutes spent on this patients care, greater than 50% of time spent counseling, educating, and coordinating care regarding the above mentioned plan. - Pending Discharge Pending Discharge Within 24 Hours: No Pending Discharge Within 48 Hours: Yes Pending Discharge Date: 06/06/18 Pending Discharge Time: 11:00 - Physical Exam Constitutional: no apparent distress, appears nourished, not in pain Eyes: PERRL, anicteric sclera, EOMI Ears, Nose, Mouth, Throat: moist mucous membranes, ears appear normal, poor dentition Cardiovascular: regular rate and rhythym, no murmur, rub, or gallop, pulses symmetric bilaterally Respiratory: clear to auscultation, reduced air movement Gastrointestinal: normoactive bowel sounds, soft, non-tender abdomen, no palpable masses Genitourinary: no bladder fullness, no bladder tenderness, no renal bruits Skin: warm, normal color, no rashes or abrasions, no fluctuance, no induration Musculoskeletal: no muscle tenderness, normal joint ROM Neurologic: AAOx3, numbness, CN II-XII Intact Psychiatric: interacting appropriately, not anxious, not encephalopathic, thought process linear Lymph, Heme, Immunologic: no cervical LAD, no supraclavicular LAD ICD10 Worksheet Patient Problems: Problems Problem Status Onset Sepsis Acute UTI (urinary tract infection) Acute Atrial fibrillation Acute Back pain Acute CVA (cerebral vascular accident) Acute Elevated troponin Acute New onset atrial fibrillation Acute Pancreatitis Acute Lab Data & Imaging Review 06/04/18 04:35 06/04/18 10:45 WBC 6.75 10^3/uL (3.80-9.50) 06/04/18 04:35 RBC 3.07 10^6/uL (4.18-5.33) L 06/04/18 04:35 Hgb 9.8 g/dL (12.6-16.3) L 06/04/18 04:35 Hct 30.9 % (38.0-47.0) L 06/04/18 04:35 MCV 100.7 fL (81.5-99.8) H 06/04/18 04:35 MCH 31.9 pg (27.9-34.1) 06/04/18 04:35 MCHC 31.7 g/dL (32.4-36.7) L 06/04/18 04:35 RDW 13.3 % (11.5-15.2) 06/04/18 04:35 Plt Count 121 10^3/uL (150-400) L 06/04/18 04:35 MPV 11.3 fL (8.7-11.7) 06/04/18 04:35 Neut % (Auto) 62.0 % (39.3-74.2) 06/04/18 04:35 Lymph % (Auto) 20.4 % (15.0-45.0) 06/04/18 04:35 [place] % (Auto) 13.0 % (4.5-13.0) 06/04/18 04:35 Eos % (Auto) 3.9 % (0.6-7.6) 06/04/18 04:35 Baso % (Auto) 0.4 % (0.3-1.7) 06/04/18 04:35 Nucleat RBC Rel Count 0.0 % (0.0-0.2) 06/04/18 04:35 Absolute Neuts (auto) 4.18 10^3/uL (1.70-6.50) 06/04/18 04:35 Absolute Lymphs (auto) 1.38 10^3/uL (1.00-3.00) 06/04/18 04:35 Absolute Monos (auto) 0.88 10^3/uL (0.30-0.80) H 06/04/18 04:35 Absolute Eos (auto) 0.26 10^3/uL (0.03-0.40) 06/04/18 04:35 Absolute Basos (auto) 0.03 10^3/uL (0.02-0.10) 06/04/18 04:35 Absolute Nucleated RBC 0.00 10^3/uL (0-0.01) 06/04/18 04:35 Immature Gran % 0.3 % (0.0-1.1) 06/04/18 04:35 Immature Gran # 0.02 10^3/uL (0.00-0.10) 06/04/18 04:35 PT 16.5 SEC (12.0-15.0) H 06/04/18 04:35 INR 1.31 (0.83-1.16) H 06/04/18 04:35 APTT 32.9 SEC (23.0-38.0) 06/04/18 04:35 VBG Lactic Acid 1.4 mmol/L (0.7-2.1) 06/03/18 13:15 Sodium 141 mEq/L (135-145) 06/04/18 10:45 Potassium 2.8 mEq/L (3.3-5.0) L 06/04/18 10:45 Chloride 119 mEq/L (97-110) H 06/04/18 10:45 Carbon Dioxide 15 mEq/l (22-31) L 06/04/18 10:45 Anion Gap 7 mEq/L (8-16) L 06/04/18 10:45 BUN 14 mg/dL (7-23) 06/04/18 10:45 Creatinine 0.5 mg/dL (0.6-1.0) L 06/04/18 10:45 Estimated GFR > 60 06/04/18 10:45 Glucose 102 mg/dL (70-100) H 06/04/18 10:45 Calcium 7.7 mg/dL (8.5-10.4) L 06/04/18 10:45 Phosphorus 2.9 mg/dL (2.5-4.5) 06/03/18 10:00 Total Bilirubin 0.6 mg/dL (0.1-1.4) 06/03/18 10:00 POC Troponin I 0.06 ng/mL (0.00-0.08) 06/03/18 10:26 Troponin I 0.041 ng/mL (0.000-0.034) H 06/04/18 04:35 NT-Pro-B Natriuret Pep 2010 pg/mL (0-450) H 06/03/18 10:00 Urine Color YELLOW 06/03/18 10:30 Urine Appearance CLEAR 06/03/18 10:30 Urine pH 5.0 (5.0-7.5) 06/03/18 10:30 Ur Specific [place] 1.016 (1.002-1.030) 06/03/18 10:30 Urine Protein NEGATIVE (NEGATIVE) 06/03/18 10:30 Urine Ketones NEGATIVE (NEGATIVE) 06/03/18 10:30 Urine Blood NEGATIVE (NEGATIVE) 06/03/18 10:30 Urine Nitrate POSITIVE (NEGATIVE) H 06/03/18 10:30 Urine Bilirubin NEGATIVE (NEGATIVE) 06/03/18 10:30 Urine Urobilinogen NEGATIVE EU (0.2-1.0) 06/03/18 10:30 Ur Leukocyte Esterase TRACE (NEGATIVE) H 06/03/18 10:30 Urine RBC 1-3 /hpf (0-3) 06/03/18 10:30 Urine WBC 10-15 /hpf (0-3) H 06/03/18 10:30 Ur Epithelial Cells NONE SEEN /lpf (NONE-1+) 06/03/18 10:30 Urine Bacteria 1+ /hpf (NONE SEEN) H 06/03/18 10:30 Urine Glucose NEGATIVE (NEGATIVE) 06/03/18 10:30
[2018-06-04] MEDS ORDERED: POTASSIUM CL 20 MEQ/15 ML UDCUP PO ONE (14:45)
[2018-06-04] MEDS ORDERED: POTASSIUM Cl (KCl) 100 ML IV SCH (15:00)
[2018-06-04] MEDS ORDERED: PROTOCOL POTASSIUM 1 DOSE MISC PRN (15:32)
--- NOTE | 2018-06-04 15:49 | GCON ---
PULMONARY/CRITICAL CARE CONSULTATION DATE OF CONSULTATION: 06/04/2018 REFERRING PHYSICIAN: Nick Roldan MD REASON FOR REFERRAL: Evaluation and management of shortness of breath, hypotension, and possible sep sis. HISTORY: The patient is an 83-year-old woman with a history of atrial fibrillation and stroke with r esidual aphasia, as well as a pulmonary embolism and congestive heart failure. She was brought to [facility] emergency department yesterday with a history of about 3 weeks of diarrhea, for which she has been taking Imodium. She has also had poor p.o. intake due to loss of appetite. She was brought in by he r daughter, who is her primary caregiver, because she had some shortness of breath and wheezing, as w ell as low blood pressure and high heart rate. She was seen in the emergency department, and because of an elevated lactate, sepsis protocol was started, and she was given IV fluids, to which she has r esponded well. She never was on pressors. She currently reports that she feels better and does not have any shortness of breath currently. She has had some stools but no diarrhea. PAST MEDICAL HISTORY: 1. Atrial fibrillation. 2. CVA with dementia and some aphasia. 3. Congestive heart failure. 4. Depression. MEDICATIONS: At the time of admission include apixaban, escitalopram, loperamide, metoprolol, furose mide, lorazepam, lisinopril, and sertraline. ALLERGIES: None. SOCIAL HISTORY: The patient lives with her daughter. She never smoked. She drinks alcohol infreque ntly. FAMILY HISTORY: Unremarkable. REVIEW OF SYSTEMS: A 10-point review of systems adds nothing to the History of Present Illness. PHYSICAL EXAMINATION: GENERAL: The patient is awake, alert, and in no acute distress. VITAL SIGNS: Blood pressure is 120/68, up from a low of 88/64 in the emergency department. Her heart rate was 7 2, down from 106 in the emergency department. She has been afebrile throughout the hospitalization. Her oxygen saturations are 95% on room air. HEENT: Normocephalic and atraumatic. No icterus. NECK : No JVD. Trachea is midline. CHEST: She has a few rales in the bases. CARDIAC: Irregular/irreg ular, without murmur. ABDOMEN: Soft, nontender. Bowel sounds are present. EXTREMITIES: No clubbi ng, cyanosis, or edema. NEURO: The patient is awake and alert but is only oriented x1. She has no gross motor or sensory deficits. LABORATORY DATA: Hemoglobin is 9.8, down from 12.6 at admission. A creatinine is 0.5, down from 1.1 . Potassium is 2.8, down from 3.6. A BNP was 2010 at admission. Troponin is 0.04. Her venous lact ate was 2.3 at admission, and fell to 1.4 three hours later. An INR is 1.3. A chest x-ray shows kelsie ar lung moura. Images reviewed by me. A urinalysis shows 10-15 white blood cells. Blood cultures are negative. A GI tract PCR panel is negative. A respiratory PCR panel is negative. 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 Echocardiogram: An echocardiogram done on June 03 demonstrates an ejection fraction of 55% with di astolic dysfunction. RVSP is estimated at 57 mmHg. There is a pulmonic valve vegetation. However, t his was apparently seen on prior echocardiograms. ASSESSMENT: 1. Hypotension. This was present on admission but improved with IV fluids. This may be due to dehy dration with poor p.o. intake and diarrhea. 2. Tachycardia. This may also be related to the hypotension and dehydration, and is improved. 3. Possible endocarditis. Pulmonic valve vegetation was seen on the echocardiogram. However, this appears to have been present 2 years ago, and given the low likelihood of pulmonic valve endocarditis , I think that no further workup for this is warranted beyond following her blood cultures. 4. Bacteruria/pyuria. This is asymptomatic and may be chronic. The patient has already received Ro cephin and vancomycin, but they have subsequently been discontinued after a consultation with Infecti ous Disease. RECOMMENDATIONS: Hold antibiotics as per ID. IV fluids have been stopped, and the patient is taking p.o. Will follow blood cultures. The patient can be transferred to the floor and followed for a da y or so there. If blood cultures remain negative, she could be discharged. /[id number]/MODL
--- NOTE | 2018-06-04 17:25 | HOSPPROG ---
Hospitalist Progress Note Assessment/Plan: Patient seen and examined, as well as discussed with Susan Conway NP. I have reviewed her note and concur with her findings. She presented with marked dehydration. Much improved after IVF. She has 3 weeks of diarrhea with hypokalemia and a NAGMA. We are holding her zoloft incase this has caused her diarrhea. She has a pulmonic valve vegetation that has likely been present since 2016 - we will follow her blood cultures today. Her antibiotics were stopped for asymptomatic bacteriuria. Objective: Vital Signs Temp Pulse Resp BP Pulse Ox 36.5 C 66 21 H 109/79 96 06/04/18 15:48 06/04/18 15:48 06/04/18 15:48 06/04/18 15:48 06/04/18 15:48 Microbiology 06/03/18 21:24 Gastrointestinal Tract Panel (PCR) - Final Stool No Organism Detected Laboratory Results 06/04/18 04:35 06/04/18 10:45 06/03/18 06/04/18 06/05/18 05:59 05:59 05:59 Intake Total 3360 Balance 3360 PT 16.5 SEC (12.0-15.0) H 06/04/18 04:35 INR 1.31 (0.83-1.16) H 06/04/18 04:35 ICD10 Worksheet Patient Problems: Problems Problem Status Onset Atrial fibrillation Acute Pancreatitis Acute Elevated troponin Acute New onset atrial fibrillation Acute CVA (cerebral vascular accident) Acute Back pain Acute UTI (urinary tract infection) Acute Sepsis Acute
[2018-06-04] MEDS: ESCITALOPRAM OXALATE 10 MG TAB PO SCH (21:10)
[2018-06-05] MEDS: APIXABAN 2.5 MG TAB PO SCH ×2 (09:07→20:31)
[2018-06-05] MEDS: METOPROLOL TARTRATE 25 MG TAB PO SCH ×2 (09:07→20:31)
--- NOTE | 2018-06-05 10:03 | WOCRNPDOC ---
WOCRN Advanced Assessment Note - Skin Integrity Problem, Advanced Assess Posterior Coccyx Dressing Type: Mepilex Border Dressing Description: Clean/Dry, Intact Skin Integrity Problem Comment: Dressing removed to visualize underneath. Area is pink and blanching. Educated patient on the importance of not always laying on her back and to instead lay on each side along with not sitting in a chair for extended periods of time. Wound care will sign off, please reconsult PRN. Marcia CRESPO updated.
[2018-06-05] MEDS: ACETAMINOPHEN 325 MG TAB PO PRN ×2 (12:22→20:38)
[2018-06-05] MEDS: LISINOPRIL 5 MG TAB PO SCH (12:23)
--- NOTE | 2018-06-05 12:33 | HOSPPROG ---
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 # CVA - cont eliquis # anemia - baseline Subjective: patient with significant difficulty ambulating today; had two loose BMs; discussed with patient and her daughter Objective: Vital Signs Temp Pulse Resp BP Pulse Ox 36.6 C 71 18 120/84 H 92 06/05/18 07:49 06/05/18 07:49 06/05/18 07:49 06/05/18 07:49 06/05/18 07:49 Microbiology 06/03/18 Unknown Urine Culture - Final Urine,Catheterized Escherichia Coli Laboratory Results 06/04/18 04:35 06/05/18 04:30 06/04/18 06/05/18 06/06/18 05:59 05:59 05:59 Intake Total 3360 1050 Balance 3360 1050 PT 16.5 SEC (12.0-15.0) H 06/04/18 04:35 INR 1.31 (0.83-1.16) H 06/04/18 04:35 - Time Spent With Patient Time Spent with Patient: greater than 25 minutes Time Spent with Patient: Greater than 25 minutes spent on this patients care, greater than 50% of time spent counseling, educating, and coordinating care regarding the above mentioned plan. - Physical Exam Constitutional: no apparent distress Eyes: anicteric sclera Ears, Nose, Mouth, Throat: hearing normal Cardiovascular: No edema Respiratory: no respiratory distress Gastrointestinal: No distension Genitourinary: No narayanan in urethra Skin: warm Musculoskeletal: full muscle strength Psychiatric: not anxious ICD10 Worksheet Patient Problems: Problems Problem Status Onset Atrial fibrillation Acute Pancreatitis Acute Elevated troponin Acute New onset atrial fibrillation Acute CVA (cerebral vascular accident) Acute Back pain Acute UTI (urinary tract infection) Acute Sepsis Acute
--- NOTE | 2018-06-05 14:29 | ASMTCMCOM ---
CM Note CM Note Notes: Met w/pt's dtr and , pt needs SNF. Currently she lives with her daughter but needs needs more help. She would like a referral sent to [facility]. CM advised that [facility] doesn't take Medicare. CM Plan: SNF Date Signed: 06/05/2018 02:29 PM Electronically Signed By:Page Farrell RN
[2018-06-05] MEDS ORDERED: POTASSIUM CL 10 MEQ TAB PO ONE (20:19)
[2018-06-05] MEDS: ESCITALOPRAM OXALATE 10 MG TAB PO SCH (20:31)
[2018-06-06 05:36] LABS: PLATELET COUNT 129 10^3/uL (150-400)
[2018-06-06] MEDS: METOPROLOL TARTRATE 25 MG TAB PO SCH (09:05)
[2018-06-06] MEDS: APIXABAN 2.5 MG TAB PO SCH (09:05)
[2018-06-06] MEDS: ACETAMINOPHEN 500 MG TAB PO SCH ×2 (09:08→13:13)
[2018-06-06] MEDS ORDERED: POTASSIUM CL 10 MEQ TAB PO ONE (09:12)
[2018-06-06] MEDS: LOPERAMIDE HCL 2 MG CAP PO PRN (10:02)
--- NOTE | 2018-06-06 10:25 | ASMTLACE ---
HAYES Length of stay for Answers: 2 days current admission Acuity / Level of Answers: Yes Care: Did the patient have an inpatient admission? Comorbidities - select Answers: Cerebrovascular disease all that apply (CVA, TIA, aneurysms, vasc ular dementia) Congestive heart failure Dementia Other Notes: AFib; HTN # of Emergency department Answers: 1-2 visits in the last 6 months Social determinants Answers: Mental health diagnosis (anxiety, depression, pers onality disorders, etc.) Score: 16 Date Signed: 06/06/2018 10:24 AM Electronically Signed By:Page Farrell RN
--- NOTE | 2018-06-06 10:28 | ASMTCMCOM ---
CM Note CM Note Notes: CM spoke w/pt's dtr, she would like to cancel referral to [facility]. She has arranged to pt to go to [facility]. CM called [facility] [phone] and she confirmed she can accept pt. Dc date today or tommorow. Discussed transportation w/dtr, if SNF can't pick he up she is ok with paying @ $60 for transport. DC Plan: [facility] Date Signed: 06/06/2018 10:27 AM Electronically Signed By:Page Farrell RN
--- NOTE | 2018-06-06 11:44 | PDIAF ---
- Diagnosis Diagnosis: diarrhea, weakness Code Status: Full Code - Medication Management Discharge Medications: Medications to Continue on Transfer Cholecalciferol Vit D3 [Vitamin D3 2000 units] 2,000 units PO DAILY #30 cap [Last Taken 06/02/18] Apixaban [Eliquis] 2.5 mg PO BID 03/26/18 [Last Taken 06/02/18 21:00] Escitalopram Oxalate [Lexapro] 20 mg PO HS 03/26/18 [Last Taken 06/02/18] Loperamide HCl [Imodium 2 mg (*)] 2 mg PO HS 03/26/18 [Last Taken 03/25/18] Metoprolol Tartrate [Lopressor 25 mg (*)] 25 mg PO BID 03/26/18 [Last Taken 04/12 09:00] Acetaminophen [Tylenol ES 500 mg (*)] 500 mg PO 0800,1200,1700 06/03/18 [Last Taken 06/05/18 20:35 650 mg] Furosemide [Lasix 20 MG (*)] 20 mg PO DAILY 06/03/18 [Last Taken 06/02/18] LORazepam [Ativan (*)] 0.5 mg PO DAILY PRN 06/03/18 [Last Taken 06/01/18] Lisinopril [Zestril 5 mg (*)] 5 mg PO DAILY@12 06/03/18 [Last Taken 06/02/18] Lactobacillus Acidophilus [Probiotic] 1 each PO BID #1 capsule 06/06/18 [Last Taken Unknown] Loperamide HCl [Imodium 2 mg (*)] 2 mg PO QID PRN #1 cap 06/06/18 [Last Taken Unknown] Discharge Medications: Refer to the Discharge Home Medication list for PRN reason. - Orders Services needed: Physical Therapy, Occupational Therapy Isolation Type: None Diet Recommendation: no restrictions on diet Diet Texture: Regular Texture Diet Additional Instructions: Follow up with primary care on discharge from rehab - Follow Up Care Current Providers and Referrals: Maggie Goldman MD [Primary Care Provider] - As per Instructions
[2018-06-06 13:13] VITALS: BP 108/74
[2018-06-06] MEDS: LISINOPRIL 5 MG TAB PO SCH (13:13)
--- NOTE | 2018-06-06 14:27 | ASDISCHSUM ---
Discharge Information Plan Status:SNF Medically Cleared to Leave:06/06/2018 Discharge Date:06/06/2018 CM D/C Disposition:[facility] ADT D/C Disposition:[facility] Projected Discharge Date:06/06/2018 11:00 AM Transportation at D/C:[facility] Discharge Delay Reason: Follow-Up Date:06/06/2018 11:00 AM Discharge Slot: Final Diagnosis:SOB, Fatigue, UTI Placement Information Referral Type:*Longterm/SNF Referral ID:[id number] Provider Name:[facility] Address 1:[address] Address 2: City:[place] Selection Factors: State:[place] Patient Contact Information Contact Name:ROLO Relationship: Address:[address] Work Phone: [facility]:MARNE Alternate Phone: [facility]/Zip Code:[place] [address] Email: Financial Information Financial Class:Medicare Advantage Plans Primary Plan Desc:[facility] [employer] Primary Plan Number:[id number] Secondary Plan Desc: Secondary Plan Number: Assessment Information LACE LACE Length of stay for Answers: 2 days current admission Acuity / Level of Answers: Yes Care: Did the patient have an inpatient admission? Comorbidities - select Answers: Cerebrovascular disease all that apply (CVA, TIA, aneurysms, vasc ular dementia) Congestive heart failure Dementia Other Notes: AFib; HTN # of Emergency department Answers: 1-2 visits in the last 6 months Social determinants Answers: Mental health diagnosis (anxiety, depression, pers onality disorders, etc.) Score: 16 Date Signed: 06/06/2018 10:24 AM Electronically Signed By:Page Farrell RN [facility] CM Progress Note CM Note CM Note Notes: 83yr old female admitted for SOB, Fatigue, UTI. She has a Hx of Afib, CVA-Aphasia, PE, HTN, CHF, ASA'CARSARMIUT, R breast CA, Depression, Dementia. Patient being tx with ABX. Patient lives with her daughter Park. Therapies to eval? CM to follow for possible discharge needs. Date Signed: 06/04/2018 09:25 AM Electronically Signed By:Jammie Wright LCSW [facility] LETI Progress Note CM Note LETI Note Notes: Met w/pt's dtr and , pt needs SNF. Currently she lives with her daughter but needs needs more help. She would like a referral sent to [facility]. CM advised that [facility] doesn't take Medicare. CM Plan: SNF Date Signed: 06/05/2018 02:29 PM Electronically Signed By:Page Farrell RN [facility] Progress Note CM Note CM Note Notes: CM spoke w/pt's dtr, she would like to cancel referral to [facility]. She has arranged to pt to go to [facility]. CM called [facility] [phone] and she confirmed she can accept pt. Dc date today or tommorow. Discussed transportation w/dtr, if SNF can't pick he up she is ok with paying @ $60 for transport. DC Plan: [facility] Date Signed: 06/06/2018 10:27 AM Electronically Signed By:Page Farrell RN Case Management Discharge Plan Note Case Management Discharge Discharge Order Complete? Answers: Yes Patient to Obtain Answers: Other Notes: [facility] Transportation Arranged Answers: Other Notes: [facility] will Pick (Date 06/06/2018 03:30 PM & Time) Faxed Final Orders Answers: Yes Agency/Facility Transfer Answers: Yes Report Printed & Faxed to Receiving Agency Family Notified Answers: Yes Discharge Comments Notes: D/w , final orders faxed. Gia Burksour notifsarah, RN to call report. Dtr ok paying for transportation. Intervention Information Intervention Type:*IM-Signed Date of Service:06/06/2018 12:28 PM Patient Type:Inpatient Staff Member:Zonia Ferguson Hours: Discipline: Severity: Comment:
== END 2018-06-06 14:55 | DRG 641 ==
LOC: F2N 14:01 → F3E 06-04 17:10
PROVIDERS: ADMIT Student in an Organized Health Care Education/Training Program; ATTEND Student in an Organized Health Care Education/Training Program
DX: E87.6 Hypokalemia (principal); E86.1 Hypovolemia; E86.0 Dehydration; R19.7 Diarrhea, unspecified; E87.2 Acidosis; I07.1 Rheumatic tricuspid insufficiency; R82.71 Bacteriuria; I11.0 Hypertensive heart disease with heart failure; I50.9 Heart failure, unspecified; D69.6 Thrombocytopenia, unspecified; I69.321 Dysphasia following cerebral infarction; I48.91 Unspecified atrial fibrillation; F32.9 Major depressive disorder, single episode, unspecified; F03.90 Unspecified dementia, unspecified severity, without behavioral disturbance, psychotic disturbance, mood disturbance, and anxiety; R32 Unspecified urinary incontinence; Z23 Encounter for immunization; Z85.3 Personal history of malignant neoplasm of breast; Z86.711 Personal history of pulmonary embolism; Z79.01 Long term (current) use of anticoagulants; Z80.3 Family history of malignant neoplasm of breast
CPT/HCPCS: 84484-PO; 96365; 97116-GP; 97161-GP; 97166-GO; 97530-GO; 97535-GO; G0008; G8978-GP-CK; G8979-GP-CI; G8987-GO-CM; G8988-GO-CK; J0696; J3370

== ENCOUNTER → 2018-10-27 | Outpatient (CLI) | payer OTHER | LOC: FIMAGING 14:41 | PROVIDERS: ATTEND Internal Medicine Hematology & Oncology | DX: Z09 Encounter for follow-up examination after completed treatment for conditions other than malignant neoplasm (principal); Z85.3 Personal history of malignant neoplasm of breast ==

== ENCOUNTER 2018-11-13 15:50 | Emergency (ER) | payer OTHER ==
--- NOTE | 2018-11-13 16:10 | EDPHY ---
H & P Stated Complaint: unwitnessed fall at home Time Seen by Provider: 11/13/18 16:10 HPI/ROS: HPI CHIEF COMPLAINT: Mechanical trip and fall. HISTORY OF PRESENT ILLNESS: This patient is a 83-year-old female, she presents emergency room by ambulance after she fell today and her family room. She lives with her daughter. 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 She mainly communicates with her daughter. Her daughter called for a lift assist. EMS arrived to find her and tried to lift her up however she started complaining of pain it is unclear exactly where she had pain her daughter became concerned and brought her to the emergency room. Her daughter reports that she fell carpeted ground in the family room. She turned and had a mechanical trip and fall. She typically has her walker with her at all times but did not during this particular episode. Denies head strike or neck pain. Denies chest pain or shortness of breath, denies syncope. Her daughter thought maybe she had some back pain from her fall so brought her to the emergency room by EMS for evaluation. However upon evaluation in the emergency room the patient denies any complaints , denies back pain arm pain neck pain chest pain shortness of breath. States really she does not any pain anywhere. Plan for this patient we will tried a walker with her walker to see how she does. Past Medical History: History of CVA with expressive aphasia. Patient is on Eliquis. Past Surgical History: No recent surgical history Social History: Lives with her daughter at bedside Family History: Noncontributory ROS REVIEW OF SYSTEMS: 10 Systems were reviewed and negative with the exception of the elements mentioned in the history of present illness. Exam Constitutional triage nursing summary reviewed, vital signs reviewed, awake/ alert. Eyes normal conjunctivae and sclera, EOMI, PERRLA. HENT normal inspection, atraumatic, moist mucus membranes, no epistaxis, neck supple/ no meningismus, no raccoon eyes. Respiratory clear to auscultation bilaterally, normal breath sounds, no respiratory distress, no wheezing. Cardiovascular rate normal, regular rhythm, no murmur, no edema, distal pulses normal. Gastrointestinal soft, non-tender, no rebound, no guarding, normal bowel sounds, no distension, no pulsatile mass. Genitourinary no CVA tenderness. Musculoskeletal no midline vertebral tenderness, full range of motion, no calf swelling, no tenderness of extremities, no meningismus, good pulses, neurovascularly intact. Skin pink, warm, & dry, no rash, skin atraumatic. Neurologic expressive aphasia at baseline, moves everything appropriately. awake, alert and oriented x 3, AAOx3, moves all 4 extremities equally, motor intact, sensory intact, CN II-XII intact, normal cerebellar, normal vision, normal speech. Psychiatric normal mood/affect. Heme/Lymph/Immune no lymphadenopathy. Differential Diagnosis: Includes but is not limited to in a particular order mechanical trip and fall, hip injury, back injury, chest wall injury Medical Decision Making: Plan for this patient patient states she does not have any complaints and feels fine, moves everything appropriately. Plan will be for ambulatory test with her walker to see if she is able to do this or develops any pain while doing this. There is no evidence of trauma Re-evaluation: 1651: Patient ambulated well with a walker with no assistance. Denies any pain anywhere. The daughter would like to take her home however prior to going home the daughter would like her to be so hydrated as she often suffers from dehydration. Plan will be for IV establishment IV fluid bolus, basic labs check electrolytes and re-evaluate. 2003: Patient re-evaluated this time she was ambulatory multiple times throughout her ER stay without any complaints. Her daughter is requesting be discharged home with her. The patient is comfortable with this. She has no complaints at this time specifically she denies any back pain chest pain or shortness of breath denies extremity pain. Denies any injury. She did have basic labs reviewed she was slightly dehydrated. She did receive a L fluid here in the emergency room is feeling much better. She would like to go home. We discussed about return precautions she understands return emergency room she develops new areas of discomfort including back pain, rib pain, or any questions or concerns. This been discussed at length with the patient as well as her daughter at bedside. Her daughter at bedside greatly helps translate as she has significant expressive aphasic. However all their questions or concerns were addressed. Source: Patient - Personal History Current Tetanus Diphtheria and Acellular Pertussis (TDAP): Yes - Medical/Surgical History Hx Asthma: No Hx Chronic Respiratory Disease: No Hx Diabetes: No Hx Cardiac Disease: Yes Hx Renal Disease: No Hx Cirrhosis: No Hx Alcoholism: No Hx HIV/AIDS: No Hx Splenectomy or Spleen Trauma: No Other PMH: CVA 2016- defecit-Dysphagia, A-FIB, CHF, T12 FX 2018, T- 11FX many years ago - Social History Smoking Status: Never smoked Constitutional: Initial Vital Signs Temperature (C) 36.4 C 11/13/18 15:53 Heart Rate 80 11/13/18 15:53 Respiratory Rate 16 11/13/18 15:53 Blood Pressure 127/73 H 11/13/18 15:53 O2 Delivery Mode Room Air Allergies/Adverse Reactions: No Known Allergies Allergy (Unverified 11/13/18 15:52) Home Medications: Medication Instructions Recorded Ativan 11/13/18 Eliquis 11/13/18 Furosemide 11/13/18 Lisinopril 11/13/18 Metoprolol Zaldivar/Hydrochlorothiaz 11/13/18 [Metoprolol ER-Hctz 100-12.5 mg] Medical Decision Making - Data Points Laboratory Results: Laboratory Results 11/13/18 17:22 11/13/18 17:22 11/13/18 11/13/18 17:22 17:22 WBC 9.18 10^3/uL 10^3/uL (3.80-9.50) RBC 4.29 10^6/uL 10^6/uL (4.18-5.33) Hgb 13.4 g/dL g/dL (12.6-16.3) Hct 42.3 % % (38.0-47.0) MCV 98.6 fL fL (81.5-99.8) MCH 31.2 pg pg (27.9-34.1) MCHC 31.7 g/dL L g/dL (32.4-36.7) RDW 12.9 % % (11.5-15.2) Plt Count 150 10^3/uL 10^3/uL (150-400) MPV 11.4 fL fL (8.7-11.7) Neut % (Auto) 69.6 % % (39.3-74.2) Lymph % (Auto) 17.9 % % (15.0-45.0) [place] % (Auto) 9.9 % % (4.5-13.0) Eos % (Auto) 1.7 % % (0.6-7.6) Baso % (Auto) 0.5 % % (0.3-1.7) Nucleat RBC Rel Count 0.0 % % (0.0-0.2) Absolute Neuts (auto) 6.38 10^3/uL 10^3/uL (1.70-6.50) Absolute Lymphs (auto) 1.64 10^3/uL 10^3/uL (1.00-3.00) Absolute Monos (auto) 0.91 10^3/uL H 10^3/uL (0.30-0.80) Absolute Eos (auto) 0.16 10^3/uL 10^3/uL (0.03-0.40) Absolute Basos (auto) 0.05 10^3/uL 10^3/uL (0.02-0.10) Absolute Nucleated RBC 0.00 10^3/uL 10^3/uL (0-0.01) Immature Gran % 0.4 % % (0.0-1.1) Immature Gran # 0.04 10^3/uL 10^3/uL (0.00-0.10) Sodium 135 mEq/L mEq/L (135-145) Potassium 4.1 mEq/L mEq/L (3.5-5.2) Chloride 104 mEq/L mEq/L (97-110) Carbon Dioxide 19 mEq/l L mEq/l (22-31) Anion Gap 12 mEq/L mEq/L (6-14) BUN 44 mg/dL H mg/dL (7-23) Creatinine 1.2 mg/dL H mg/dL (0.6-1.0) Estimated GFR 43 Glucose 91 mg/dL mg/dL (70-100) Calcium 10.9 mg/dL H mg/dL (8.5-10.4) Phosphorus 3.3 mg/dL mg/dL (2.5-4.5) Medications Given: Discontinued Medications Sodium Chloride (Ns) 1,000 mls @ 0 mls/hr IV EDNOW ONE; Wide Open PRN Reason: Protocol Stop: 11/13/18 16:52 Last Admin: 11/13/18 17:21 Dose: 1,000 mls Departure - Departure Disposition: Home, Routine, Self-Care Clinical Impression: Dehydration Fall Qualifiers: Encounter type: initial encounter Qualified Code(s): W19.XXXA - Unspecified fall, initial encounter Condition: Good Instructions: Fall Prevention for Older Adults (ED), Fall Prevention (ED), Dehydration (ED) Additional Instructions: 1. Rest and stay well-hydrated. 2. Return to the emergency room if you have worsening symptoms. This includes new areas of pain, vomiting, not doing well. Referrals: Maggie Goldman MD [Primary Care Provider] - As per Instructions
[2018-11-13] MEDS ORDERED: NS 1,000 ML IV ONE (16:51)
[2018-11-13 17:35] LABS: PLATELET COUNT 150 10^3/uL (150-400)
[2018-11-13 19:46] VITALS: BP 134/91
== END 2018-11-13 20:15 | disposition home or self-care (01) ==
LOC: EDBD → EDUNIT# → MERGE 15:50
DX: E86.0 Dehydration (principal); R52 Pain, unspecified; W01.0XXA Fall on same level from slipping, tripping and stumbling without subsequent striking against object, initial encounter; Y92.018 Other place in single-family (private) house as the place of occurrence of the external cause

== ENCOUNTER 2019-01-18 11:15 | Inpatient (IN) | payer OTHER ==
--- NOTE | 2019-01-18 12:50 | EDPHY ---
H & P Stated Complaint: "possible UTI" Time Seen by Provider: 01/18/19 11:57 HPI/ROS: CHIEF COMPLAINT: Confusion, generalized weakness Limitations: Confusion HISTORY OF PRESENT ILLNESS: 83-year-old female with prior CVA and resultant aphasia presents with confusion and generalized weakness. She has a 24 hr caregiver and the caregiver noted confusion starting 2 days ago. Associated with dry heaves (x 1) 2 day ago and decreased appetite. Similar symptoms to prior UTIs. The patient feels slightly confused, but has no other complaints. Usually uses a walker to ambulate and now too weak to stand up. No recent illness or fever. 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, depression - Social History Smoking Status: Never smoked Alcohol Use: Sober Drug Use: None - Physical Exam Exam: General Appearance: Alert, nonverbal, nontoxic-appearing Eyes: Pupils equal and round, no conjunctival pallor ENT, Mouth: Mucous membranes moist Neck: Normal inspection Respiratory: Lungs are clear to auscultation Cardiovascular: Regular rate and rhythm Gastrointestinal: Abdomen is soft and nontender Neurological: Alert, nonfocal exam Skin: Warm and dry, no rash Extremities: Nontender, no pedal edema Psychiatric: Unable to assess Constitutional: Initial Vital Signs Temperature (C) 37.1 C 01/18/19 11:23 Heart Rate 113 H 01/18/19 11:23 Respiratory Rate 18 01/18/19 11:23 Blood Pressure 119/83 H 01/18/19 11:23 O2 Sat (%) 93 01/18/19 11:23 O2 Delivery Mode Room Air Allergies/Adverse Reactions: No Known Allergies Allergy (Unverified 06/03/18 09:40) Home Medications: Medication Instructions Recorded Cholecalciferol Vit D3 [Vitamin D3 2,000 units PO DAILY #30 cap 02/10/16 2000 units] Apixaban [Eliquis] 2.5 mg PO BID 03/26/18 Escitalopram Oxalate [Lexapro] 20 mg PO DAILY@17 03/26/18 Metoprolol Tartrate [Lopressor 25 25 mg PO BID 03/26/18 mg (*)] Acetaminophen [Tylenol ES 500 mg 500 mg PO BID@08,12 06/03/18 (*)] Furosemide [Lasix 20 MG (*)] 20 mg PO DAILY 06/03/18 LORazepam [Ativan (*)] 0.5 mg PO Q8 PRN 06/03/18 Acetamn/Diphenhydramine 500/25 1 each PO DAILY@17 01/18/19 [Tylenol PM (*)] Lisinopril [Zestril 5 mg (*)] 5 mg PO DAILY@01/18/19 Medical Decision Making ED Course/Re-evaluation: This patient presents with confusion and generalized weakness. An IV was established an IV normal saline 500 mL given. Laboratory studies consistent with mild dehydration and urinalysis reveals a urinary tract infection. A urine culture was sent and Rocephin 1 g IV given. She does not meet SIRS criteria. The patient is too weak to safely go home. She will be admitted for treatment of urinary tract infection to the hospitalist service. Differential Diagnosis: Altered mental status including but not limited to hypoglycemia, infectious process, electrolyte abnormality, head injury, CVA, and intoxicants. - Data Points Laboratory Results: Laboratory Results 01/18/19 12:00 01/18/19 12:00 Microbiology Results: MICROBIOLOGY 01/18/19 12:15 Urine,Clean Catch Urine Culture - Final Escherichia Coli 01/18/19 12:00 Blood Blood Culture - Preliminary Medications Given: Acetaminophen (Tylenol) 500 mg PO BID@,12 [facility] Stop: 07/18/19 07:59 Last Admin: 01/20/19 08:25 Dose: 500 mg Apixaban (Eliquis) 2.5 mg PO BID NICOLETTE Stop: 07/17/19 20:59 Last Admin: 01/20/19 08:25 Dose: 2.5 mg Escitalopram Oxalate (Lexapro) 20 mg PO DAILY@17 [facility] Stop: 07/17/19 16:59 Last Admin: 01/19/19 16:50 Dose: 20 mg Furosemide (Lasix) 20 mg PO DAILY NICOLETTE Stop: 07/18/19 08:59 Last Admin: 01/20/19 08:25 Dose: 20 mg Sodium Chloride (Ns) 1,000 mls @ 100 mls/hr IV CONT NICOLETTE Stop: 07/17/19 13:29 Last Admin: 01/18/19 20:36 Dose: 1,000 mls Ceftriaxone Sodium/Dextrose (Rocephin 1 Gm (Premix)) 50 mls @ 100 mls/hr IV DAILY NICOLETTE PRN Reason: Protocol Stop: 02/18/19 08:59 Last Admin: 01/20/19 08:25 Dose: 50 mls Lisinopril (Zestril) 5 mg PO DAILY@12 [facility] Stop: 07/18/19 11:59 Last Admin: 01/19/19 11:59 Dose: 5 mg Lorazepam (Ativan) 0.5 mg PO Q8 PRN PRN Reason: Anxiety Stop: 07/17/19 13:53 Last Admin: 01/19/19 21:09 Dose: 0.5 mg Metoprolol Tartrate (Lopressor) 25 mg PO BID NICOLETTE Stop: 07/17/19 20:59 Last Admin: 01/20/19 08:25 Dose: 25 mg Discontinued Medications Ceftriaxone Sodium/Dextrose (Rocephin 1 Gm (Premix)) 50 mls @ 100 mls/hr IV EDNOW ONE PRN Reason: Protocol Stop: 01/18/19 13:33 Last Admin: 01/18/19 13:11 Dose: 50 mls Departure - Departure Disposition: [facility] Acute Clinical Impression: Acute encephalopathy UTI (urinary tract infection) Qualifiers: Urinary tract infection type: acute pyelonephritis Qualified Code(s): N10 - Acute pyelonephritis Condition: Fair
[2019-01-18 12:52] LABS: PLATELET COUNT 148 10^3/uL (150-400)
[2019-01-18] MEDS ORDERED: oxyCODONE IR 5 MG TAB PO PRN (13:27)
[2019-01-18] MEDS ORDERED: ONDANSETRON 4 MG/2 ML VIAL IVP PRN (13:27)
[2019-01-18] MEDS ORDERED: ACETAMINOPHEN 325 MG TAB PO PRN (13:27)
[2019-01-18] MEDS ORDERED: ONDANSETRON DISINTEGRATING 4 MG TAB PO PRN (13:27)
[2019-01-18] MEDS ORDERED: HYDROmorphONE/DILAUDID 1 MG/ML INJ IVP PRN (13:27)
--- NOTE | 2019-01-18 13:29 | PDGENHP ---
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 She is here with her daughter, who is her primary drier and evaporator operator and with whom she lives. Patient is a poor historian given her dementia. Per daughter, patient had some loose stools and dry heaving on Saturday. She was very weak yesterday and more "out of it" than normal. The patient usually ambulates with a walker but was unable to do so today because she felt too weak. She denies any urinary symptoms, dyspnea, cough, fevers, or chills. No recent medication changes however she has been unable to take her usual chronic medications for the last day or so. In the ED, she was found to be tachycardic and a UA was grossly infected appearing. She was given a dose of IV ceftriaxone and is being admitted for further evaluation and care. History Information - Allergies/Home Medication List Allergies/Adverse Reactions: No Known Allergies Allergy (Unverified 06/03/18 09:40) Home Medications: Apixaban [Eliquis] 2.5 mg PO BID 03/26/18 [Last Taken 01/17/19 09:00] Escitalopram Oxalate [Lexapro] 20 mg PO DAILY@17 03/26/18 [Last Taken 01/16/19] Metoprolol Tartrate [Lopressor 25 mg (*)] 25 mg PO BID 03/26/18 [Last Taken 09:00] Acetaminophen [Tylenol ES 500 mg (*)] 500 mg PO BID@08,12 06/03/18 [Last Taken 01/17/19] Furosemide [Lasix 20 MG (*)] 20 mg PO DAILY 06/03/18 [Last Taken 01/17/19] LORazepam [Ativan (*)] 0.5 mg PO Q8 PRN 06/03/18 [Last Taken 01/11/19] Acetamn/Diphenhydramine 500/25 [Tylenol PM (*)] 1 each PO DAILY@01/18/19 [ Last Taken 01/16/19] Lisinopril [Zestril 5 mg (*)] 5 mg PO DAILY@12 01/18/19 [Last Taken 01/16/19] I have personally reviewed and updated: family history, medical history, social history, surgical history - Past Medical History Additional medical history: atrial fibrillation, embolic CVA with residual aphasia/R sided weakness, PE on AC, HTN, CHF now with normalized LVEF, depression, dementia, severe TR, chronic pulmonic valve vegetation, E coli UTIs , T12 fracture, breast cancer - Surgical History Additional surgical history: Right breast lumpectomy April 2018 with + margins - Family History Positive for: cancer (Breast cancer) - Social History Smoking Status: Never smoked Alcohol Use: None Drug Use: None Additional social history: Uses walker. Lives with daughter. Review of Systems Review of Systems: ROS: 10pt was reviewed & negative except for what was stated in HPI & below Physical Exam Physical Exam: Temp Pulse Resp BP Pulse Ox 37 C 112 H 20 126/80 H 95 01/18/19 13:14 01/18/19 12:50 01/18/19 12:50 01/18/19 12:50 01/18/19 12:50 Constitutional: no apparent distress, appears nourished, not in pain Eyes: PERRL, anicteric sclera, EOMI Ears, Nose, Mouth, Throat: no oral mucosal ulcers, dry mucous membranes Cardiovascular: systolic murmur, tachycardia, No edema Respiratory: no respiratory distress, no rales or rhonchi, clear to auscultation Gastrointestinal: normoactive bowel sounds, soft, non-tender abdomen, no palpable masses Genitourinary: no bladder fullness, no bladder tenderness Skin: warm, normal color, no rashes or abrasions, no fluctuance, no induration, No mottled Musculoskeletal: generalized weakness Neurologic: other (alert, not oriented, aphasic (chronic)) Psychiatric: encephalopathic Lab Data & Imaging Review 01/18/19 12:00 01/18/19 12:00 WBC 7.70 10^3/uL (3.80-9.50) 01/18/19 12:00 RBC 3.96 10^6/uL (4.18-5.33) L 01/18/19 12:00 Hgb 12.4 g/dL (12.6-16.3) L 01/18/19 12:00 Hct 37.8 % (38.0-47.0) L 01/18/19 12:00 MCV 95.5 fL (81.5-99.8) 01/18/19 12:00 MCH 31.3 pg (27.9-34.1) 01/18/19 12:00 MCHC 32.8 g/dL (32.4-36.7) 01/18/19 12:00 RDW 13.8 % (11.5-15.2) 01/18/19 12:00 Plt Count 148 10^3/uL (150-400) L 01/18/19 12:00 MPV 11.6 fL (8.7-11.7) 01/18/19 12:00 Neut % (Auto) 71.4 % (39.3-74.2) 01/18/19 12:00 Lymph % (Auto) 10.5 % (15.0-45.0) L 01/18/19 12:00 [place] % (Auto) 17.0 % (4.5-13.0) H 01/18/19 12:00 Eos % (Auto) 0.3 % (0.6-7.6) L 01/18/19 12:00 Baso % (Auto) 0.3 % (0.3-1.7) 01/18/19 12:00 Nucleat RBC Rel Count 0.0 % (0.0-0.2) 01/18/19 12:00 Absolute Neuts (auto) 5.50 10^3/uL (1.70-6.50) 01/18/19 12:00 Absolute Lymphs (auto) 0.81 10^3/uL (1.00-3.00) L 01/18/19 12:00 Absolute Monos (auto) 1.31 10^3/uL (0.30-0.80) H 01/18/19 12:00 Absolute Eos (auto) 0.02 10^3/uL (0.03-0.40) L 01/18/19 12:00 Absolute Basos (auto) 0.02 10^3/uL (0.02-0.10) 01/18/19 12:00 Absolute Nucleated RBC 0.00 10^3/uL (0-0.01) 01/18/19 12:00 Immature Gran % 0.5 % (0.0-1.1) 01/18/19 12:00 Immature Gran # 0.04 10^3/uL (0.00-0.10) 01/18/19 12:00 Sodium 136 mEq/L (135-145) 01/18/19 12:00 Potassium 4.7 mEq/L (3.5-5.2) 01/18/19 12:00 Chloride 103 mEq/L (97-110) 01/18/19 12:00 Carbon Dioxide 20 mEq/l (22-31) L 01/18/19 12:00 Anion Gap 13 mEq/L (6-14) 01/18/19 12:00 BUN 29 mg/dL (7-23) H 01/18/19 12:00 Creatinine 1.0 mg/dL (0.6-1.0) 01/18/19 12:00 Estimated GFR 53 01/18/19 12:00 Glucose 120 mg/dL (70-100) H 01/18/19 12:00 Calcium 10.4 mg/dL (8.5-10.4) 01/18/19 12:00 Urine Color YELLOW 01/18/19 12:15 Urine Appearance MODERATELY TURBID 01/18/19 12:15 Urine pH 6.0 (5.0-7.5) 01/18/19 12:15 Ur Specific [place] 1.015 (1.002-1.030) 01/18/19 12:15 Urine Protein 2+ (NEGATIVE) H 01/18/19 12:15 Urine Ketones NEGATIVE (NEGATIVE) 01/18/19 12:15 Urine Blood 2+ (NEGATIVE) H 01/18/19 12:15 Urine Nitrate POSITIVE (NEGATIVE) H 01/18/19 12:15 Urine Bilirubin NEGATIVE (NEGATIVE) 01/18/19 12:15 Urine Urobilinogen NEGATIVE EU (0.2-1.0) 01/18/19 12:15 Ur Leukocyte Esterase 3+ (NEGATIVE) H 01/18/19 12:15 Urine RBC 25-50 /hpf (0-3) H 01/18/19 12:15 Urine WBC 50-182 /hpf (0-3) H 01/18/19 12:15 Ur Epithelial Cells NONE SEEN /lpf (NONE-1+) 01/18/19 12:15 Urine Bacteria 3+ /hpf (NONE SEEN) H 01/18/19 12:15 Hyaline Casts 1-5 /lpf (0-1) 01/18/19 12:15 Urine Glucose NEGATIVE (NEGATIVE) 01/18/19 12:15 Assessment & Plan Assessment: 83yo F with history of atrial fibrillation, 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 Plan: #UTI: No recent urinary instrumentation of narayanan catheter. History of E coli UTI resistant to ampicillin/unasyn. She is not septic. - Continue ceftriaxone 1g q24h - Follow urine culture #Acute metabolic encephalopathy: D/t dehydration, infection. At risk for delirium. #Tachycardia: Appears sinus on monitor. Due to above in addition to beta alvin withdrawal. - Check ecg, resume home metoprolol, IV fluids #Prerenal azotemia: BUN/Cr a bit up from baseline. Getting fluids, will monitor. #Generalized weakness - PT/OT #Chronic pulmonic valve vegetation: ID consulted in past, did not feel she has/ had endocarditis. - Check blood cultures #H/o PE: Continue eliquis. #H/o embolic CVA: Residual aphasia and subtle R weakness. #Atrial fibrillation: Continue metoprolol, anticoagulation. #H/o CHF now with normalized LVEF: Continue home lasix, beta alvin, lisinopril. #Depression: Continue lexapro. #Dementia: Lives with daughter who is primary drier and evaporator operator. Needs assistance with all ADLs. - Consider palliative care consult this admission #Breast cancer: s/p lumpectomy 04/2018 with + margins. Followed by [facility]. No plans for chemo/XRT given her comorbidities. #H/o T12 fracture VTE ppx: therapeutic anticoagulation Code: DNR/DNI. I reviewed MOST form from 01/2016 with patient and daughter and they confirmed this and understand it's implications. They are ok with selective treatments such as IV abx, hospitalization, etc. Dispo: admit under observation
[2019-01-18] MEDS ORDERED: LORazepam 0.5 MG TAB PO PRN (13:54)
[2019-01-18] MEDS: NS 1,000 ML IV SCH ×2 (15:40→20:36)
--- NOTE | 2019-01-18 16:08 | ASMTCMCOM ---
CM Note CM Note Notes: Chart reviewed for discharge planning purposes. 87 year old female normally lives with her daughter who is her retail operations specialist admitted for increasing confusion and weakness. History significant for CVA and in ED she is found to have a UTI. CM to follow for needs. plan: TBD Date Signed: 01/18/2019 04:08 PM Electronically Signed By:Mirta Schaffer RN
[2019-01-18] MEDS: ESCITALOPRAM OXALATE 10 MG TAB PO SCH (17:14)
[2019-01-18] MEDS: APIXABAN 2.5 MG TAB PO SCH (20:35)
[2019-01-18] MEDS: METOPROLOL TARTRATE 25 MG TAB PO SCH (20:35)
[2019-01-19 05:32] LABS: PLATELET COUNT 133 10^3/uL (150-400)
[2019-01-19] MEDS: FUROSEMIDE 20 MG TAB PO SCH (08:53)
[2019-01-19] MEDS: METOPROLOL TARTRATE 25 MG TAB PO SCH ×2 (08:53→21:09)
[2019-01-19] MEDS: ACETAMINOPHEN 500 MG TAB PO SCH ×2 (08:53→11:59)
[2019-01-19] MEDS: APIXABAN 2.5 MG TAB PO SCH ×2 (08:59→21:09)
[2019-01-19] MEDS ORDERED: LISINOPRIL 5 MG TAB PO SCH (12:00)
--- NOTE | 2019-01-19 13:28 | HOSPPROG ---
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 Plan: #UTI: No recent urinary instrumentation of narayanan catheter. History of E coli UTI resistant to ampicillin/unasyn. She is not septic. - Continue ceftriaxone 1g q24h - Follow urine culture #Acute metabolic encephalopathy: D/t dehydration, infection better #Tachycardia: Appears sinus on monitor. Due to above in addition to beta alvin withdrawal ecg ST resume home metoprolol #Prerenal azotemia: BUN/Cr a bit up from baseline. Resolved with fluids #Generalized weakness PT/OT pt still unable to walk to bathroom on her own #Chronic pulmonic valve vegetation: ID consulted in past, did not feel she has/had endocarditis. follow blood cultures #H/o PE: Continue eliquis. #H/o embolic CVA: Residual aphasia and subtle R weakness. #Atrial fibrillation: Continue metoprolol, anticoagulation. #H/o CHF now with normalized LVEF: Continue home lasix, beta alvin, lisinopril. #Depression: Continue lexapro. #Dementia: Lives with daughter who is primary webbing weaver. Needs assistance with all ADLs. #Breast cancer: s/p lumpectomy 04/2018 with + margins. Followed by [facility]. No plans for chemo/XRT given her comorbidities. #H/o T12 fracture VTE ppx: therapeutic anticoagulation Code: DNR/DNI. Dispo: change to inpt status wait for culture results cont IV abx Subjective: Up in chair. No pain. Objective: Vital Signs Temp Pulse Resp BP Pulse Ox 36.7 C 110 H 18 146/87 H 94 01/19/19 08:00 01/19/19 08:15 01/19/19 08:00 01/19/19 11:59 01/19/19 08:15 Laboratory Results 01/19/19 04:43 01/19/19 04:43 01/18/19 01/19/19 01/20/19 05:59 05:59 05:59 Intake Total 1380 Balance 1380 - Physical Exam Constitutional: appears nourished, not in pain, chronically ill appearing Eyes: PERRL, anicteric sclera, EOMI Ears, Nose, Mouth, Throat: moist mucous membranes, hearing normal, ears appear normal Cardiovascular: regular rate and rhythym, No JVD, No edema Respiratory: no respiratory distress, no rales or rhonchi, reduced air movement Gastrointestinal: normoactive bowel sounds, No tenderness, No ascites Skin: warm, normal color, No mottled Musculoskeletal: normal joint ROM, no joint effusions, generalized weakness Neurologic: No AAOx3 Psychiatric: not anxious, poor insight, poor judgement, poor memory ICD10 Worksheet Patient Problems: Problems Problem Status Onset Atrial fibrillation Acute Pancreatitis Acute Elevated troponin Acute New onset atrial fibrillation Acute CVA (cerebral vascular accident) Acute Back pain Acute UTI (urinary tract infection) Acute Sepsis Acute
[2019-01-19] MEDS: ESCITALOPRAM OXALATE 10 MG TAB PO SCH (16:50)
[2019-01-20 07:50] VITALS: BP 127/77
[2019-01-20] MEDS: ACETAMINOPHEN 500 MG TAB PO SCH (08:25)
[2019-01-20] MEDS: APIXABAN 2.5 MG TAB PO SCH (08:25)
[2019-01-20] MEDS: METOPROLOL TARTRATE 25 MG TAB PO SCH (08:25)
[2019-01-20] MEDS: FUROSEMIDE 20 MG TAB PO SCH (08:25)
--- NOTE | 2019-01-20 08:32 | HOSPPROG ---
Hospitalist Progress Note Assessment/Plan: Patient is an 83-year-old female who presented to the emergency room with 2 days of worsening confusion and weakness. She was found to have a urinary tract infection. 1st encounter chart reviewed. * urinary tract infection -urine culture grew out E coli which is pansensitive -current on ceftriaxone * acute metabolic encephalopathy -multifactorial including a urinary tract infection, dehydration, dementia, and history of CVA -at baseline she is oriented to herself - and daughter says she is back to her baseline * tachycardia -resume beta-alvin, history of atrial fibrillation * pre renal azotemia * generalized weakness -reviewed PT and OT notes -24 hour care w use of walker -daughter provides this * chronic pulmonic valve vegetation -has been evaluated by [facility] in the past. Current blood cultures show no growth * history of pulmonary emboli -Eliquis resumed * atrial fibrillation -on oral anticoagulation, rate controlled with beta-alvin *hx of embolic CVA -residual aphasia and r sided weakness *CHF hx -Lasix, lisinopril,beta alvin *Depression-Lexapro. *Dementia: Lives with daughter who is primary supervisor coating. Needs assistance with all ADLs. *Breast cancer: s/p lumpectomy 04/2018 with + margins. Followed by [facility]. No plans for chemo/XRT given her comorbidities. *H/o T12 fracture *plan: dc home w her daughter Subjective: Azul is happy, smiling, no c/o of anything. Objective: Vital Signs Temp Pulse Resp BP Pulse Ox 36.6 C 72 14 127/77 H 95 01/20/19 07:50 01/20/19 08:25 01/20/19 07:50 01/20/19 08:25 01/20/19 07:50 Laboratory Results 01/19/19 04:43 01/19/19 04:43 01/19/19 01/20/19 01/21/19 05:59 05:59 05:59 Intake Total 1380 Output Total 300 Balance 1380 -300 - Physical Exam Constitutional: no apparent distress, appears nourished, not in pain Eyes: PERRL Ears, Nose, Mouth, Throat: hearing normal Cardiovascular: regular rate and rhythym Respiratory: no respiratory distress Gastrointestinal: normoactive bowel sounds Skin: warm Musculoskeletal: generalized weakness Psychiatric: interacting appropriately, poor insight, poor judgement, poor memory ICD10 Worksheet Patient Problems: Problems Problem Status Onset Acute encephalopathy Acute UTI (urinary tract infection) Acute Atrial fibrillation Acute Back pain Acute CVA (cerebral vascular accident) Acute Elevated troponin Acute New onset atrial fibrillation Acute Pancreatitis Acute Sepsis Acute
--- NOTE | 2019-01-20 09:25 | PDMN ---
Medical Necessity Medical necessity: MCG: M300 UTI-- A-2 days: AMS/ weakness that is persistent , parental abx needed beyond observation period. 83 yo F presents with 2 days worsening confusion and weakness.- tachycardia, PMHx : CVA, afib, PE, CHF, Br. Ca., dementia, HTN, severe TR, chronic pulm vegetation, E coli UTIs, T12 fx , status changed to INPT 01/19 for ongoing med nec care, further monitoring, eval and tx of UTI, AMS, weakness. PT/OT
--- NOTE | 2019-01-20 10:03 | PDIAF ---
- Diagnosis Diagnosis: uti, dehydration, acute metabolic encephalopathy Code Status: Do Not Resuscitate - Medication Management Discharge Medications: electronically signed and located in the Home Medication List. - Orders Services needed: Home Care, Registered Nurse, Physical Therapy, Occupational Therapy Home Care Face to Face: I certify that this patient was under my care and that I had the required [id number] encounter meeting the encounter requirements on the discharge day. My findings support the fact that the patient is homebound as defined in Home Care Face to Face Continued: CMS Chapter 7 Medicare Benefits Manual 30.1.1 , The condition of the patient is such that there exists a normal inability to leave home and consequently, leaving home would require a considerable and taxing effort. Isolation Type: None Diet Recommendation: no restrictions on diet Diet Texture: Regular Texture Diet Additional Instructions: stay well hydrated if Azul is not eating or drinking; hold her Lasix there is an agency that can provide IV [id number] w Dr Goldman to see if this can be arranged - Follow Up Care Current Providers and Referrals: Maggie Goldman MD [Doctor of Osteopathy] - Patient,NotPresent [Primary Care Provider] - As per Instructions
--- NOTE | 2019-01-20 10:14 | ASMTLACE ---
LACE Length of stay for Answers: 2 days current admission Acuity / Level of Answers: Yes Care: Did the patient have an inpatient admission? Comorbidities - select Answers: Cerebrovascular disease all that apply (CVA, TIA, aneurysms, vasc ular dementia) Score: 6 Date Signed: 01/20/2019 10:14 AM Electronically Signed By:LUNA Rendon
--- NOTE | 2019-01-20 10:22 | ASDISCHSUM ---
Discharge Information Plan Status:Home with Home Health Medically Cleared to Leave:01/20/2019 Discharge Date:01/20/2019 CM D/C Disposition: ADT D/C Disposition:Home, Routine, Self-Care Projected Discharge Date:01/20/2019 11:00 AM Transportation at D/C: Discharge Delay Reason: Follow-Up Date:01/20/2019 11:00 AM Discharge Slot: Final Diagnosis: Placement Information Referral Type:*Home Health Care Services Referral ID:[id number] Provider Name:[facility] [address] [place] [address] Phone Number: Address 2: Fax Number: [facility]:[place] Selection Factors: State:[place] Patient Contact Information Contact Name:ROLO Relationship: Address:[address] Work Phone: City:[place] Alternate Phone: State/Zip Code:[place] [address] Email: Financial Information Financial Class:Medicare Advantage Plans Primary Plan Desc:[facility] [employer] Primary Plan Number:[id number] Secondary Plan Desc: Secondary Plan Number: Assessment Information LACE LACE Length of stay for Answers: 2 days current admission Acuity / Level of Answers: Yes Care: Did the patient have an inpatient admission? Comorbidities - select Answers: Cerebrovascular disease all that apply (CVA, TIA, aneurysms, vasc ular dementia) Score: 6 Date Signed: 01/20/2019 10:14 AM Electronically Signed By:LUNA Rendon [facility] CM Progress Note CM Roque CM Note Notes: Chart reviewed for discharge planning purposes. 87 year old female normally lives with her daughter who is her solutions sales executive admitted for increasing confusion and weakness. History significant for CVA and in ED she is found to have a UTI. CM to follow for needs. plan: TBD Date Signed: 01/18/2019 04:08 PM Electronically Signed By:Mirta Schaffer RN Case Management Discharge Plan Note Case Management Discharge Discharge Order Complete? Answers: Yes Patient to Obtain Answers: via Family Medications Transportation Arranged Answers: Family/Friends EMTALA Complete Answers: No Case Management Transport Answers: No Form Complete Faxed Final Orders Answers: Yes Agency/Facility Transfer Answers: Yes Report Printed & Faxed to Receiving Agency Family Notified Answers: Yes Discharge Comments Notes: Pts case discussed w/ Kenyetta Navarrete NP. Pt is being d/c'd today. CM met w/ pt and daughter Katharine for dispo planning. PT is recommending HC w 24hr supervision. OT is recommending Home w/ 18/03 supervision. Katharine would like HC services to be set up. Katharine does not have a preference on HC agency. [facility] Katharine's phone cell is listed as primary for [facility] to call. CM confirmed pts address, phone number and PCP. Katharine would like pt to get iv hydration. CM gave Katharine a list of a couple home infusion companies. Katharine will need to contact pts PCP to set it up. Kenyetta does not think pt needs iv hydration at this time therefore CM will not set it up. CM available for changes. Plan: [facility]; PT, OT, RN Date Signed: 01/20/2019 10:19 AM Electronically Signed By:LUNA Rendon Intervention Information
--- NOTE | 2019-01-20 10:29 | GDS ---
[f rep st] DISCHARGE SUMMARY DISCHARGE DIAGNOSES: 1. Urinary tract infection. 2. Acute metabolic encephalopathy. 3. Tachycardia. 4. Prerenal azotemia. 5. Generalized weakness. 6. Chronic pulmonic valve vegetation. 7. History of pulmonary embolus. 8. Atrial fibrillation. 9. History of embolic cerebrovascular accident. 10. Congestive heart failure history. 11. Depression. 12. Dementia. 13. Breast cancer. 14. History of T12 fracture. HISTORY OF PRESENT ILLNESS: Briefly Ms Melara is an 83-year-old female who presented to the emergency room with 2 days of worsening confusion and weakness. She was found to have a urinary tract infection. In further discussion with her daughter, the patient had stopped drinking very much. I suspect many of her issues prior to her hospital stay was related to dehydration. She improved after receiving IV hydration and with antibiotic treatment. HOSPITAL COURSE: 1. Urinary tract infection. Her urine culture grew out E coli, which was ocasio sensitive. She was treated with sufficient treatment of ceftriaxone. 2. Acute metabolic encephalopathy. This is multifactorial, including a UTI, dehydration, dementia, and history of CVA. She is back to her baseline. 3. Tachycardia, resolved. Resumed her beta alvin therapy. 4. Prerenal azotemia, stable. 5. Generalized weakness, PT and OT are recommending 24-hour care with use of walker. Her daughter provides this. 6. Chronic pulmonic valve vegetation. Blood cultures showed no growth. 7. History of PE, on Eliquis. 8. Atrial fibrillation, rate controlled. 9. History of embolic CVA. She has residual aphasia and some right-sided weakness. 10. CHF, on BETINA inhibitor, beta alvin, and diuretic. 11. Depression, on Lexapro. 12. Dementia. Her daughter is her primary care provider. 13. Breast cancer. She is status post lumpectomy in 2018. 14. History of T12 fracture, stable. DISCHARGE CONDITION: Stable. Blood pressure is 127/77, heart rate is 72, respiratory rate of 14, O2 sats on room air 95%, temperature is 36.6 Celsius. MEDICATIONS AT DISCHARGE: Please see the EMR. DISCHARGE INSTRUCTIONS: 1. To talk with Dr Goldman about an agency that provides IV hydration. [facility] one of them. 2. If she is not eating or drinking, recommending that her daughter hold her Lasix. 3. Return to the ER for any worsening symptoms. Greater than 30 minutes discharging and coordinating her care. /[id number]/MODL MTDD
--- NOTE | 2019-01-23 11:46 | CPEKG ---
Test Reason : OPEN Blood Pressure : / mmHG Vent. Rate : 112 BPM Atrial Rate : 113 BPM P-R Int : 168 ms QRS Dur : 094 ms QT Int : 307 ms P-R-T Axes : 000 -24 154 degrees QTc Int : 419 ms Sinus tachycardia Ventricular premature complex Borderline left axis deviation Nonspecific ST and T wave abnormality Confirmed by Lobo Gutiérrez ([id number]) on 01/23/2019 11:45:25 AM Referred By: Ramón Hernandez Confirmed By:Lobo Gutiérrez
== END 2019-01-20 10:20 | disposition home or self-care (01) | DRG 689 ==
LOC: EDUNIT# → F3E 14:16
PROVIDERS: ADMIT Internal Medicine; ATTEND Internal Medicine
DX: N39.0 Urinary tract infection, site not specified (principal); G93.41 Metabolic encephalopathy; R00.0 Tachycardia, unspecified; F03.90 Unspecified dementia, unspecified severity, without behavioral disturbance, psychotic disturbance, mood disturbance, and anxiety; I11.0 Hypertensive heart disease with heart failure; I50.9 Heart failure, unspecified; I48.91 Unspecified atrial fibrillation; I69.920 Aphasia following unspecified cerebrovascular disease; I33.0 Acute and subacute infective endocarditis; Z85.3 Personal history of malignant neoplasm of breast; Z66 Do not resuscitate; Z86.711 Personal history of pulmonary embolism
CPT/HCPCS: 96374; 97162-GP; 97166-GO; 97530-GP; G0378; J0696